=== PATIENT | male | born 1945 | race American Indian/Alaskan Native ===

== ENCOUNTER 2016-07-12 10:18 | Emergency (ER) | payer MEDICARE, OTHER ==
--- NOTE | 2016-07-12 10:55 | Emergency Department Report ---
Entered by ADARSH CARDONA, acting as scribe for YUMIKO TABOR PA. Stated Complaint: CHEST PAIN Time Seen by Provider: 07/12/16 10:26 - HPI History of Present Illness: Patient presents to the ED via EMS c/o chest pain that began this morning at 10: 15. Patient states he was at the dialysis center and began to feel chest pain. In triage, he currently denies having any chest pain and SOB. Pt has a fistula present on left arm. - ROS Review of Systems: All system are negative unless stated in HPI above. - Exam Vital Signs: Vital Signs 07/12/16 10:48 Temperature 97.5 F L Pulse Rate 60 Respiratory 18 Rate Blood Pressure 162/102 O2 Sat by Pulse 100 Oximetry Physical Exam: General: well nourished, well developed, nontoxic in appearance, in no acute distress Respiratory: clear to auscultation bilaterally. No wheezes. No rhonchi. No whales. Cardiovascular: S1/S2 regular rate and rhythm MSE screening note: Focused history and physical exam performed. Due to findings the following was ordered: ED Medical Decision Making - Medical Decision Making Medical decision making: Patient seen by provider in triage area. Appropriate protocol activated and patient to main ED to be seen by provider ED Disposition for MSE Condition: Stable This documentation as recorded by the scribe,ADARSH CARDONA,accurately reflects the service I personally performed and the decisions made by me,YUMIKO TABOR PA.
[2016-07-12 11:10] LABS: Basophils % (Auto) 1.1 % (0.0-1.8); Eosinophils % (Auto) 9.4 % (0.0-4.3); Hematocrit 36.8 % (35.5-45.6); Hemoglobin 12.1 gm/dl (11.8-15.2); Mean Corpuscular HGB Conc 33 % (32-34); Mean Corpuscular Hemoglobin 32 pg (28-32); Mean Corpuscular Volume 99 fl (84-94); Platelet Count 195 K/mm3 (140-440); Red Blood Count 3.72 M/mm3 (3.65-5.03); Red Cell Distribution Width 14.4 % (13.2-15.2); White Blood Count 8.8 K/mm3 (4.5-11.0)
[2016-07-12 11:18] LABS: INR 0.95 (0.87-1.13)
[2016-07-12 11:19] LABS: Partial Thromboplastin Time 36.7 Sec. (24.2-36.6)
--- NOTE | 2016-07-12 11:20 | XRay Report ---
ROUTINE CHEST, TWO VIEWS: HISTORY: chest pain. The trachea, heart, mediastinal contour, lung pratt and bony thorax are unremarkable. Right lower lobe opacity has resolved since 09/22/15. IMPRESSION: Unremarkable chest x-ray.
[2016-07-12 11:27] LABS: Creatine Kinase MB 2.4 ng/mL (0.0-4.0)
[2016-07-12 11:30] LABS: Creatine Kinase MB 2.4 ng/mL (0.0-4.0)
[2016-07-12 11:31] LABS: Anion Gap 20 mmol/L; BUN/Creatinine Ratio 3.12; Blood Urea Nitrogen 25 mg/dL (9-20); Calcium 9.3 mg/dL (8.4-10.2); Carbon Dioxide 29 mmol/L (22-30); Chloride 88.7 mmol/L (98-107); Creatine Kinase 128 units/L (55-170); Glucose 250 mg/dL (75-100); Potassium 3.6 mmol/L (3.6-5.0); Sodium 134 mmol/L (137-145)
--- NOTE | 2016-07-12 11:35 | Emergency Department Report ---
HPI - General Chief Complaint: Chest Pain Time Seen by Provider: 07/12/16 11:16 - HPI HPI: 70 year-old male who presents to the emergency department via EMS from dialysis with complaint of some pain to the upper abdomen and/or lower chest that began during dialysis. She did not finish dialysis as when he complained of this discomfort he was stopped on his dialysis and sent in for further evaluation. Patient currently says he is asymptomatic. He says it was a aching pain at about 5 out of 10 and it only lasted for about 20 or 30 minutes. He does not make any urine secondary to his hemodialysis. He denies any recent problems with bowel movements. He denies any nausea, back pain, fever, vomiting. He did not take anything and was not given anything for symptoms prior to presentation. The patient has a history of end-stage renal disease on hemodialysis on Tuesday/Tuesday/Tuesday, insulin-dependent diabetes, hypertension. His primary care doctor is Dr. Medina and his history card clerk is Dr. Rutherford. ED Past Medical Hx - Past Medical History Previous Medical History?: Yes Hx Hypertension: Yes Hx Heart Attack/AMI: No Hx Diabetes: Yes (IDDM) Hx GERD: Yes Hx Liver Disease: No Hx Renal Disease: Yes (dialysisi mwf) Hx Seizures: No Hx Asthma: No Hx COPD: No Hx Tuberculosis: No Hx HIV: No Additional medical history: high cholesterol - Surgical History Past Surgical History?: Yes Additional Surgical History: "back sugery". amputation of left big toe, left arm AV fistula - Social History Smoking Status: Former Smoker Substance Use Type: Prescribed - Medications Home Medications: Home Medications Medication Instructions Recorded Confirmed Last Taken Type Doxazosin Mesylate [Cardura Xl] 4 mg PO DAILY 07/12/16 07/12/16 Unknown History Ferric Citrate (Nf) [Auryxia (Nf)] 210 mg PO BID 07/12/16 07/12/16 Unknown History Gabapentin [Neurontin] 300 mg PO QHS 07/12/16 07/12/16 Unknown History Insulin Detemir [Levemir VIAL] 25 unit SQ QHS 07/12/16 07/12/16 Unknown History Losartan [Cozaar] 100 mg PO QDAY 07/12/16 07/12/16 Unknown History Metoprolol [Lopressor] 25 mg PO BID 07/12/16 07/12/16 Unknown History Simvastatin [Zocor TAB] 80 mg PO QHS 07/12/16 07/12/16 Unknown History amLODIPine [Norvasc] 10 mg PO DAILY 07/12/16 07/12/16 Unknown History ED Review of Systems ROS: Stated complaint: CHEST PAIN Other details as noted in HPI Comment: All other systems reviewed and negative Constitutional: denies: chills, fever Eyes: denies: eye pain, eye discharge, vision change ENT: denies: ear pain, throat pain Respiratory: denies: cough, shortness of breath, wheezing Cardiovascular: denies: palpitations, edema Gastrointestinal: abdominal pain. denies: nausea, vomiting Genitourinary: denies: urgency, dysuria Musculoskeletal: denies: back pain, joint swelling, arthralgia Skin: denies: rash, lesions Neurological: denies: headache, weakness, paresthesias Physical Exam - Physical Exam Vital Signs: Vital Signs 07/12/16 10:48 Temperature 97.5 F L Pulse Rate 60 Respiratory 18 Rate Blood Pressure 162/102 O2 Sat by Pulse 100 Oximetry Physical Exam: GENERAL: The patient is well-developed well-nourished. HEENT: Normocephalic. Atraumatic. Extraocular motions are intact. Patient has moist mucous membranes. Pupils equal reactive to light bilaterally. NECK: Supple. Trachea is midline. CHEST/LUNGS: Clear to auscultation. There is no respiratory distress noted. HEART/CARDIOVASCULAR: Regular. There is no tachycardia. There is no gallop rub or murmur. ABDOMEN: Abdomen is soft, nontender. Patient has normal bowel sounds. There is no abdominal distention. SKIN: Skin is warm and dry. NEURO: The patient is awake, alert, and oriented. The patient is cooperative. The patient has no focal neurologic deficits. The patient has normal speech. MUSCULOSKELETAL: There is no tenderness or deformity. There is no limitation range of motion. There is no evidence of acute injury. ED Course Vital Signs 07/12/16 10:48 Temperature 97.5 F L Pulse Rate 60 Respiratory 18 Rate Blood Pressure 162/102 O2 Sat by Pulse 100 Oximetry ED Medical Decision Making - Lab Data Result diagrams: 07/12/16 10:54 07/12/16 10:54 - EKG Data -: EKG Interpreted by Ar EKG shows normal: sinus rhythm (with PVCs and PACs), axis (left axis deviation) , intervals, QRS complexes, ST-T waves (nonspecific T waves) Rate: normal - EKG Data When compared to previous EKG there are: previous EKG unavailable Interpretation: other (sinus rhythm with PACs and PVCs, left axis deviation, nonspecific T waves) - Medical Decision Making This is a 70-year-old male who presents the emergency department from dialysis after he complained of some pain towards the epigastrium or lower midline chest. However the pain resolved prior to presentation and has not restarted. The patient says he is currently asymptomatic and is asking to be sent home. The patient had a chest pain workup through triage that was the concern of his complaint. EKG showed no signs of ST elevation LA. Chest x-ray does not show any pleural effusions, pneumonia or pneumothorax. Patient's labs are mostly unremarkable. He has renal insufficiency but he is end-stage renal disease on dialysis. He has an elevated troponin slightly but he also once again has end- stage renal disease and this is most likely secondary to that. The patient has been in the emergency department for almost 4 hours and has had no return of his previous discomfort. He did have some problems with hypertension with a systolic reaching into the 190s. The patient was given one shot of IM hydralazine and upon reevaluation his blood pressures come down to a much more reasonable level. He has been encouraged to follow up with his primary care doctor as well as his history card clerk and to contact nephrology to find out whether he should continue with his normal dialysis regimen on Tuesday or if he needs earlier dialysis tomorrow since he did not complete his session. Critical Care Time: No Critical care attestation.: If time is entered above; I have spent that time in minutes in the direct care of this critically ill patient, excluding procedure time. ED Disposition Clinical Impression: ESRD (end stage renal disease) HTN (hypertension) Qualifiers: Hypertension type: essential hypertension Qualified Code(s): I10 - Essential ( primary) hypertension Disposition: DISCHARGED TO HOME OR SELFCARE Is pt being admited?: No Condition: Stable Instructions: Hypertension (ED), Chronic Kidney Disease (ED) Additional Instructions: Please follow-up with your primary care doctor in the next few days. It is also recommended that you follow-up with your history card clerk to find out if they would like you to continue with her dialysis as scheduled on Tuesday or if you need dialysis tomorrow since she did not complete her dialysis session today. Return to the emergency department with any recurrence of your discomfort, whether it be abdominal or chest discomfort, or with any acute distress. Referrals: PRIMARY CARE, [Primary Care Provider] - 3-5 Days PAULINE BRUSH MD [Staff Physician] - [facility] Time of Disposition: 14:07
[2016-07-12 11:44] LABS: Cholesterol 249 mg/dL (50-199); HDL Cholesterol 61 mg/dL (40-59); LDL Cholesterol,Direct 171 mg/dL (50-130); Triglycerides 89 mg/dL (2-149)
[2016-07-12] MEDS ORDERED: APRESOLINE IM ONE (12:29)
[2016-07-12 14:12] VITALS: BP 165/89
== END 2016-07-12 14:53 | disposition home or self-care (01) ==
LOC: ED 10:18
DX: I12.0 Hypertensive chronic kidney disease with stage 5 chronic kidney disease or end stage renal disease (principal); N18.6 End stage renal disease; E11.9 Type 2 diabetes mellitus without complications; K21.9 Gastro-esophageal reflux disease without esophagitis; E78.00 Pure hypercholesterolemia, unspecified; Z99.2 Dependence on renal dialysis; Z87.891 Personal history of nicotine dependence; Z79.4 Long term (current) use of insulin
CPT/HCPCS: 36415; 71020; 80048; 80061; 82550; 82553; 83880; 84484; 85025; 85610; 85730; 93005; 93010; 96372; 99285; J0360

== ENCOUNTER 2018-05-27 15:50 | Emergency (ER) | payer MEDICARE, OTHER ==
[2018-05-27 17:07] LABS: Basophils # (Auto) 0.2 K/mm3 (0.0-0.1); Basophils % (Auto) 1.4 % (0.0-1.8); Eosinophils # (Auto) 0.8 K/mm3 (0.0-0.4); Hematocrit 40.3 % (35.5-45.6); Hemoglobin 13.1 gm/dl (11.8-15.2); Lymphocytes # (Auto) 1.5 K/mm3 (1.2-5.4); Lymphocytes % (Auto) 11.4 % (13.4-35.0); Mean Corpuscular HGB Conc 33 % (32-34); Mean Corpuscular Volume 105 fl (84-94); Monocytes # (Auto) 1.4 K/mm3 (0.0-0.8); Monocytes % (Auto) 10.5 % (0.0-7.3); Red Blood Count 3.84 M/mm3 (3.65-5.03); Red Cell Distribution Width 14.8 % (13.2-15.2)
[2018-05-27 17:10] LABS: Platelet Count 206 K/mm3 (140-440)
--- NOTE | 2018-05-27 17:18 | XRay Report ---
PROCEDURE: XR CHEST 1V AP TECHNIQUE: Chest single AP HISTORY: Fall COMPARISONS: FINDINGS: Cardiac and mediastinal contours are unremarkable. No focal pulmonary infiltrate identified. No pleur al fluid collection seen. Pulmonary vasculature is unremarkable. IMPRESSION: Negative single view chest. This document is electronically signed by Parviz Márquez MD., May 27 2018 05:16:14 PM ET
[2018-05-27 17:27] LABS: Albumin 4.2 g/dL (3.9-5); Calcium 10.6 mg/dL (8.4-10.2)
--- NOTE | 2018-05-27 19:50 | Emergency Department Report ---
HPI - General Chief Complaint: Fall Time Seen by Provider: 05/27/18 16:19 - HPI HPI: 72-year-old -[place] male with history of CK D, hypertension, presents to ED with frequent falls. Patient stated today he fell in his bathroom, didn't really hit the ground as he realizes he was falling and cannot sleep himself down. No chest pain or shortness of breath prior to the episode. He said he had back surgery years ago and have been progressively weakened since that surgery. He was once admitted for generalized weakness, and he has seen his PCP regarding this and getting rehabilitation once her rate. Family stated this once weekly rehabilitation is really not helping. ED Past Medical Hx - Past Medical History Hx Hypertension: Yes Hx Heart Attack/AMI: No Hx Diabetes: Yes (IDDM) Hx GERD: Yes Hx Liver Disease: No Hx Renal Disease: Yes (dialysisi mwf) Hx Seizures: No Hx Asthma: No Hx COPD: No Hx Tuberculosis: No Hx HIV: No Additional medical history: high cholesterol - Surgical History Additional Surgical History: "back sugery". amputation of left big toe, left arm AV fistula - Social History Smoking Status: Former Smoker Substance Use Type: None - Medications Home Medications: Home Medications Medication Instructions Recorded Confirmed Last Taken Type Doxazosin Mesylate [Cardura Xl] 4 mg PO DAILY 07/12/16 04/09/17 Unknown History Ferric Citrate (Nf) [Auryxia (Nf)] 210 mg PO BID 07/12/16 04/09/17 Unknown History Gabapentin [Neurontin] 300 mg PO QHS 07/12/16 04/09/17 Unknown History Insulin Detemir [Levemir VIAL] 25 unit SQ QHS 07/12/16 04/09/17 Unknown History Losartan [Cozaar] 100 mg PO QDAY 07/12/16 04/09/17 Unknown History Metoprolol [Lopressor TAB] 25 mg PO BID 07/12/16 04/09/17 Unknown History Simvastatin [Zocor TAB] 80 mg PO QHS 07/12/16 04/09/17 Unknown History amLODIPine [Norvasc] 10 mg PO DAILY 07/12/16 04/09/17 Unknown History cloNIDine [Catapres] 0.2 mg PO Q12H PRN #30 tablet 04/10/17 Unknown Rx ED Review of Systems ROS: Stated complaint: FALL Other details as noted in HPI Constitutional: denies: chills, fever Eyes: denies: eye pain, eye discharge, vision change ENT: denies: ear pain, throat pain Respiratory: denies: cough, shortness of breath, wheezing Cardiovascular: denies: chest pain, palpitations Endocrine: no symptoms reported Gastrointestinal: denies: abdominal pain, nausea, diarrhea Genitourinary: denies: urgency, dysuria Musculoskeletal: denies: back pain, joint swelling, arthralgia Skin: denies: rash, lesions Neurological: weakness. denies: headache, paresthesias Psychiatric: denies: anxiety, depression Hematological/Lymphatic: denies: easy bleeding, easy bruising Physical Exam - Physical Exam Vital Signs: Vital Signs 05/27/18 05/27/18 05/27/18 16:00 16:01 16:02 Temperature Pulse Rate Blood Pressure 138/81 138/81 O2 Sat by Pulse 93 92 94 Oximetry 05/27/18 05/27/18 05/27/18 16:04 16:06 16:07 Temperature 98.7 F Pulse Rate 85 Blood Pressure 138/81 138/81 O2 Sat by Pulse 94 95 Oximetry 05/27/18 05/27/18 05/27/18 16:38 16:40 16:42 Temperature Pulse Rate Blood Pressure 141/83 141/83 141/83 O2 Sat by Pulse 97 98 96 Oximetry 05/27/18 05/27/18 05/27/18 16:44 16:46 16:48 Temperature Pulse Rate Blood Pressure 141/83 141/83 141/83 O2 Sat by Pulse 94 94 97 Oximetry 05/27/18 05/27/18 05/27/18 16:50 16:52 16:54 Temperature Pulse Rate Blood Pressure 141/83 141/83 141/83 O2 Sat by Pulse 95 94 97 Oximetry 05/27/18 05/27/18 05/27/18 16:56 16:58 17:00 Temperature Pulse Rate Blood Pressure 141/83 141/83 146/77 O2 Sat by Pulse 95 95 96 Oximetry 05/27/18 05/27/18 05/27/18 17:02 17:04 17:06 Temperature Pulse Rate Blood Pressure 146/77 146/77 146/77 O2 Sat by Pulse 94 96 97 Oximetry 05/27/18 05/27/18 05/27/18 17:08 17:10 17:12 Temperature Pulse Rate Blood Pressure 146/77 146/77 146/77 O2 Sat by Pulse 99 98 98 Oximetry 05/27/18 05/27/18 05/27/18 17:14 17:16 17:18 Temperature Pulse Rate Blood Pressure 146/77 146/77 146/77 O2 Sat by Pulse 94 92 92 Oximetry 05/27/18 05/27/18 05/27/18 17:20 17:22 17:24 Temperature Pulse Rate Blood Pressure 146/77 146/77 146/77 O2 Sat by Pulse 100 92 100 Oximetry 05/27/18 05/27/18 05/27/18 17:26 17:28 17:30 Temperature Pulse Rate Blood Pressure 146/77 146/77 146/77 O2 Sat by Pulse 94 99 98 Oximetry 05/27/18 05/27/18 05/27/18 17:32 17:34 17:36 Temperature Pulse Rate Blood Pressure 146/77 146/77 146/77 O2 Sat by Pulse 98 98 97 Oximetry 05/27/18 05/27/18 05/27/18 17:38 17:40 17:42 Temperature Pulse Rate Blood Pressure 146/77 146/77 146/77 O2 Sat by Pulse 99 97 98 Oximetry 05/27/18 05/27/18 05/27/18 17:44 17:46 17:48 Temperature Pulse Rate Blood Pressure 146/77 146/77 146/77 O2 Sat by Pulse 95 98 98 Oximetry 05/27/18 05/27/18 05/27/18 17:50 17:52 17:54 Temperature Pulse Rate Blood Pressure 146/77 146/77 146/77 O2 Sat by Pulse 99 97 96 Oximetry 05/27/18 05/27/18 05/27/18 17:56 17:58 18:00 Temperature Pulse Rate Blood Pressure 146/77 146/77 146/77 O2 Sat by Pulse 98 97 95 Oximetry 05/27/18 05/27/18 05/27/18 18:02 18:04 18:06 Temperature Pulse Rate Blood Pressure 146/77 146/77 146/77 O2 Sat by Pulse 96 97 96 Oximetry 05/27/18 05/27/18 05/27/18 18:08 18:10 18:12 Temperature Pulse Rate Blood Pressure 146/77 146/77 146/77 O2 Sat by Pulse 96 96 94 Oximetry 05/27/18 05/27/18 18:14 18:16 Temperature Pulse Rate Blood Pressure 146/77 146/77 O2 Sat by Pulse 97 96 Oximetry Physical Exam: Gen. alert and oriented 3 in no distress Head atraumatic normocephalic Eyes PERRLA EOMI Chest regular rate and rhythm normal S1-S2 lungs clear bilaterally Abdomen soft nondistended Back no point tenderness paravertebral tenderness Neuro no focal deficit. Psych normal mood. ED Course Vital Signs 05/27/18 05/27/18 05/27/18 16:00 16:01 16:02 Temperature Pulse Rate Blood Pressure 138/81 138/81 O2 Sat by Pulse 93 92 94 Oximetry 05/27/18 05/27/18 05/27/18 16:04 16:06 16:07 Temperature 98.7 F Pulse Rate 85 Blood Pressure 138/81 138/81 O2 Sat by Pulse 94 95 Oximetry 05/27/18 05/27/18 05/27/18 16:38 16:40 16:42 Temperature Pulse Rate Blood Pressure 141/83 141/83 141/83 O2 Sat by Pulse 97 98 96 Oximetry 05/27/18 05/27/18 05/27/18 16:44 16:46 16:48 Temperature Pulse Rate Blood Pressure 141/83 141/83 141/83 O2 Sat by Pulse 94 94 97 Oximetry 05/27/18 05/27/18 05/27/18 16:50 16:52 16:54 Temperature Pulse Rate Blood Pressure 141/83 141/83 141/83 O2 Sat by Pulse 95 94 97 Oximetry 05/27/18 05/27/18 05/27/18 16:56 16:58 17:00 Temperature Pulse Rate Blood Pressure 141/83 141/83 146/77 O2 Sat by Pulse 95 95 96 Oximetry 05/27/18 05/27/18 05/27/18 17:02 17:04 17:06 Temperature Pulse Rate Blood Pressure 146/77 146/77 146/77 O2 Sat by Pulse 94 96 97 Oximetry 05/27/18 05/27/18 05/27/18 17:08 17:10 17:12 Temperature Pulse Rate Blood Pressure 146/77 146/77 146/77 O2 Sat by Pulse 99 98 98 Oximetry 05/27/18 05/27/18 05/27/18 17:14 17:16 17:18 Temperature Pulse Rate Blood Pressure 146/77 146/77 146/77 O2 Sat by Pulse 94 92 92 Oximetry 05/27/18 05/27/18 05/27/18 17:20 17:22 17:24 Temperature Pulse Rate Blood Pressure 146/77 146/77 146/77 O2 Sat by Pulse 100 92 100 Oximetry 05/27/18 05/27/18 05/27/18 17:26 17:28 17:30 Temperature Pulse Rate Blood Pressure 146/77 146/77 146/77 O2 Sat by Pulse 94 99 98 Oximetry 05/27/18 05/27/18 05/27/18 17:32 17:34 17:36 Temperature Pulse Rate Blood Pressure 146/77 146/77 146/77 O2 Sat by Pulse 98 98 97 Oximetry 05/27/18 05/27/18 05/27/18 17:38 17:40 17:42 Temperature Pulse Rate Blood Pressure 146/77 146/77 146/77 O2 Sat by Pulse 99 97 98 Oximetry 05/27/18 05/27/18 05/27/18 17:44 17:46 17:48 Temperature Pulse Rate Blood Pressure 146/77 146/77 146/77 O2 Sat by Pulse 95 98 98 Oximetry 05/27/18 05/27/18 05/27/18 17:50 17:52 17:54 Temperature Pulse Rate Blood Pressure 146/77 146/77 146/77 O2 Sat by Pulse 99 97 96 Oximetry 05/27/18 05/27/18 05/27/18 17:56 17:58 18:00 Temperature Pulse Rate Blood Pressure 146/77 146/77 146/77 O2 Sat by Pulse 98 97 95 Oximetry 05/27/18 05/27/18 05/27/18 18:02 18:04 18:06 Temperature Pulse Rate Blood Pressure 146/77 146/77 146/77 O2 Sat by Pulse 96 97 96 Oximetry 05/27/18 05/27/18 05/27/18 18:08 18:10 18:12 Temperature Pulse Rate Blood Pressure 146/77 146/77 146/77 O2 Sat by Pulse 96 96 94 Oximetry 05/27/18 05/27/18 18:14 18:16 Temperature Pulse Rate Blood Pressure 146/77 146/77 O2 Sat by Pulse 97 96 Oximetry ED Medical Decision Making - Lab Data Result diagrams: 05/27/18 16:53 05/27/18 16:53 Critical care attestation.: If time is entered above; I have spent that time in minutes in the direct care of this critically ill patient, excluding procedure time. ED Disposition Clinical Impression: Weakness Disposition: DC-01 TO HOME OR SELFCARE Is pt being admited?: No Does the pt Need Aspirin: No Condition: Stable Instructions: Weakness (ED) Referrals: BRAD BERRY MD [Primary Care Provider] - 3-5 Days
[2018-05-27 22:10] VITALS: BP 177/88
== END 2018-05-27 22:00 | disposition home or self-care (01) ==
LOC: ED 15:50
DX: R53.1 Weakness (principal); I10 Essential (primary) hypertension; E11.9 Type 2 diabetes mellitus without complications; K21.9 Gastro-esophageal reflux disease without esophagitis; E78.00 Pure hypercholesterolemia, unspecified; Z87.891 Personal history of nicotine dependence; Z79.899 Other long term (current) drug therapy; Z99.2 Dependence on renal dialysis
CPT/HCPCS: 36415; 71045; 80053; 85025; 93005; 93010

== ENCOUNTER 2018-05-29 14:06 | Inpatient (IN) | payer MEDICARE, OTHER ==
[2018-05-29 16:04] LABS: Hemoglobin 12.1 gm/dl (11.8-15.2); Mean Corpuscular HGB Conc 33 % (32-34); Mean Corpuscular Volume 104 fl (84-94); Platelet Count 216 K/mm3 (140-440); Red Blood Count 3.55 M/mm3 (3.65-5.03); Red Cell Distribution Width 14.2 % (13.2-15.2)
[2018-05-29 16:23] LABS: INR 1.03 (0.87-1.13)
[2018-05-29 16:24] LABS: Albumin 3.8 g/dL (3.9-5); BUN/Creatinine Ratio 5; Blood Urea Nitrogen 69 mg/dL (9-20); Calcium 9.6 mg/dL (8.4-10.2); Hemolysis Index 169; Partial Thromboplastin Time 29.1 Sec. (24.2-36.6)
[2018-05-29 16:30] LABS: Bilirubin,Direct < 0.2 mg/dL (0-0.2)
--- NOTE | 2018-05-29 16:30 | XRay Report ---
PROCEDURE: XR CHEST 1V AP TECHNIQUE: Frontal portable view of the chest HISTORY: ams COMPARISONS: Chest x-ray dated May 27, 2018 FINDINGS: There is bilateral hypoinflation with crowding of the bronchovascular structures. There is prominence of the interstitial markings in both lungs that appears to have increased in degr ee in the interval. This may be secondary to hypoinflation. There is a nonspecific focus of increased density projected in the left lung base in the region of th e left ventricle. Whether or not this is artifactual or in nature or possibly represent a retrocardia c area of pulmonary consolidation is unclear. There is no evidence of pneumothorax or pleural fluid collection. There is prominence of the pulmonary venous vasculature suggestive of pulmonary venous congestion. The cardiac silhouette is enlarged similar in appearance to the previous study. The thoracic aorta is tortuous. The bony structures are notable for retained hardware in the cervical spine. Visualization of detail of the thoracic spine is limited. IMPRESSION: 1. Hypoinflation. 2. Nonspecific focus of increased density projected in the left lung base. Artifact versus retrocardi ac pulmonary consolidation. PA and lateral views of the chest or CT chest may be helpful for further evaluation. 3. Stable enlarged cardiac silhouette. 4. Retained hardware cervical spine. This document is electronically signed by Drea Summers MD., May 29 2018 04:27:58 PM ET
[2018-05-29 16:31] LABS: Alanine Aminotransferase 10 units/L (7-56)
[2018-05-29] MEDS ORDERED: LEVAQUIN 750MG/150ML 750 MG/150 ML BAG IV ONE (16:35)
--- NOTE | 2018-05-29 16:47 | Emergency Department Report ---
- General Chief complaint: Weakness Stated complaint: FALL/WEAKNESS Time Seen by Provider: 05/29/18 14:39 Source: patient Mode of arrival: Stretcher Limitations: No Limitations - History of Present Illness Initial comments: 72-year-old male with history of ESRD presents to ED today with generalized weakness. states she was trying to get him dressed this morning for dialysis, and patient rolled off of the bed because he was so weak. states she had to call 911 so that they could help get the patient off of the floor. The states patient was asleep on the floor until EMS arrived. States he has been sleepier than usual. Patient reports he has been getting progressively weaker over the last few months. Says he is normally able to use his walker to walk, however, he felt so weak that he could not do so. also reports patient was briefly unresponsive. Patient's again called EMS to bring him to the ED. Patient denies pain, denies shortness of breath. Patient denies right or left-sided weakness, reports generalized weakness. States was seen 2 days ago in this ER for generalized weakness, was discharged from the ER. Patient reports he was last dialyzed 3 days ago, and 2 for dialysis today. Clinical Trial Leader is Dr. Frank. Complaint: generalized weakness -: This morning Location: generalized Severity: severe Severity scale (0 -10): 0 Consistency: constant Improves with: none Worsens with: none Context: history of similar Associated Symptoms: confusion. denies: chest pain, fever/chills, headaches, nausea/vomiting, shortness of breath - Related Data Home Medications Medication Instructions Recorded Confirmed Last Taken Doxazosin Mesylate [Cardura Xl] 4 mg PO BID 07/12/16 04/09/17 05/29/18 Ferric Citrate (Nf) [Auryxia (Nf)] 210 mg PO BID 07/12/16 04/09/17 Unknown Gabapentin [Neurontin] 300 mg PO QHS 07/12/16 05/29/18 05/28/18 300 Insulin Detemir [Levemir VIAL] 20 unit SQ QHS 07/12/16 05/29/18 05/28/18 20 Losartan [Cozaar] 100 mg PO QDAY 07/12/16 05/29/18 05/29/18 100 Metoprolol [Lopressor TAB] 25 mg PO BID 07/12/16 04/09/17 Unknown Simvastatin [Zocor TAB] 80 mg PO QHS 07/12/16 04/09/17 Unknown amLODIPine [Norvasc] 10 mg PO DAILY 07/12/16 04/09/17 05/29/18 10 cloNIDine [Catapres] 0.2 mg PO DAILY PRN 05/29/18 05/29/18 0.2 Allergies Allergy/AdvReac Type Severity Reaction Status Date / Time No Known Allergies Allergy Verified 02/21/14 22:42 ED Review of Systems ROS: Stated complaint: FALL/WEAKNESS Other details as noted in HPI Comment: All other systems reviewed and negative Constitutional: denies: chills, fever Respiratory: denies: shortness of breath Cardiovascular: denies: chest pain Gastrointestinal: denies: abdominal pain, vomiting, diarrhea Neurological: denies: headache ED Past Medical Hx - Past Medical History Hx Hypertension: Yes Hx Heart Attack/AMI: No Hx Diabetes: Yes (IDDM) Hx GERD: Yes Hx Liver Disease: No Hx Renal Disease: Yes (dialysisi mwf) Hx Seizures: No Hx Asthma: No Hx COPD: No Hx Tuberculosis: No Hx HIV: No Additional medical history: high cholesterol - Surgical History Additional Surgical History: "back sugery". amputation of left big toe, left arm AV fistula - Social History Smoking Status: Never Smoker Substance Use Type: None - Medications Home Medications: Home Medications Medication Instructions Recorded Confirmed Last Taken Type Doxazosin Mesylate [Cardura Xl] 4 mg PO BID 07/12/16 04/09/17 05/29/18 History Ferric Citrate (Nf) [Auryxia (Nf)] 210 mg PO BID 07/12/16 04/09/17 Unknown History Gabapentin [Neurontin] 300 mg PO QHS 07/12/16 05/29/18 05/28/18 History 300 Insulin Detemir [Levemir VIAL] 20 unit SQ QHS 07/12/16 05/29/18 05/28/18 History 20 Losartan [Cozaar] 100 mg PO QDAY 07/12/16 05/29/18 05/29/18 History 100 Metoprolol [Lopressor TAB] 25 mg PO BID 07/12/16 04/09/17 Unknown History Simvastatin [Zocor TAB] 80 mg PO QHS 04/24/17 01/20/18 Unknown History amLODIPine [Norvasc] 10 mg PO DAILY 07/12/16 04/09/17 05/29/18 History 10 cloNIDine [Catapres] 0.2 mg PO DAILY PRN 05/29/18 05/29/18 History 0.2 ED Physical Exam - General Limitations: No Limitations General appearance: lethargic - Head Head exam: Present: atraumatic, normocephalic - Eye Eye exam: Present: normal appearance - ENT ENT exam: Present: mucous membranes dry - Neck Neck exam: Present: normal inspection - Respiratory Respiratory exam: Present: normal lung sounds bilaterally. Absent: respiratory distress - Cardiovascular Cardiovascular Exam: Present: regular rate, normal rhythm - GI/Abdominal GI/Abdominal exam: Present: soft. Absent: distended, tenderness - Extremities Exam Extremities exam: Present: normal inspection - Neurological Exam Neurological exam: Present: oriented X3, CN II-XII intact - Psychiatric Psychiatric exam: Present: normal affect, normal mood - Skin Skin exam: Present: warm, dry, intact, normal color - Assessment Assessment Interval: Baseline - Level of Consciousness 1a. Level of Consciousness: arousable/minor stimuli - LOC Questions 1b. LOC Questions: answers both correctly - LOC Command 1c. LOC Commands: performs tasks correctly - Best Gaze 2. Best Gaze: normal - Visual 3. Visual: no visual loss - Facial Palsy 4. Facial Palsy: normal symmetrical movement - Motor Arm 5a. Motor Arm Left: drift 5b. Motor Arm Right: drift - Motor Leg 6a. Motor Leg Left: drift 6b. Motor Leg Right: drift - Limb Ataxia 7. Limb Ataxia: absent - Sensory 8. Sensory: normal - Best Language 9. Best Language: no aphasia - Dysarthria 10. Dysarthria: normal - Extinction and Inattention 11. Extinction/Inattention: no abnormality - Scoring Total Score: 5 Stroke Severity: Moderate Stroke ED Course Vital Signs 05/29/18 05/29/18 05/29/18 14:20 15:25 15:30 Temperature 99.4 F Pulse Rate 103 H 97 H 100 H Respiratory 16 13 18 Rate Blood Pressure 159/81 159/84 159/84 Blood Pressure [Right] O2 Sat by Pulse 90 100 93 Oximetry 05/29/18 05/29/18 05/29/18 15:34 15:46 16:00 Temperature Pulse Rate 97 H 94 H Respiratory 16 12 15 Rate Blood Pressure 160/88 160/88 Blood Pressure [Right] O2 Sat by Pulse 90 89 99 Oximetry 05/29/18 05/29/18 05/29/18 16:09 16:16 16:30 Temperature Pulse Rate 98 H 95 H 98 H Respiratory 14 12 15 Rate Blood Pressure 183/97 172/94 Blood Pressure 183/97 [Right] O2 Sat by Pulse 98 95 97 Oximetry 05/29/18 05/29/18 05/29/18 16:46 17:00 17:16 Temperature Pulse Rate 91 H 91 H 95 H Respiratory 13 18 19 Rate Blood Pressure 168/90 168/90 179/90 Blood Pressure [Right] O2 Sat by Pulse 99 98 98 Oximetry 05/29/18 05/29/18 05/29/18 17:30 17:58 18:00 Temperature Pulse Rate 91 H 90 88 Respiratory 17 13 14 Rate Blood Pressure 170/89 170/89 170/89 Blood Pressure [Right] O2 Sat by Pulse 99 90 92 Oximetry 05/29/18 05/29/18 05/29/18 18:16 18:30 18:45 Temperature Pulse Rate 91 H 85 87 Respiratory 15 15 13 Rate Blood Pressure 149/71 156/108 160/85 Blood Pressure [Right] O2 Sat by Pulse 97 97 93 Oximetry 05/29/18 05/29/18 05/29/18 19:00 19:04 19:16 Temperature 98.5 F Pulse Rate 94 H 90 85 Respiratory 15 12 14 Rate Blood Pressure 160/85 148/80 Blood Pressure 148/80 [Right] O2 Sat by Pulse 99 96 99 Oximetry 05/29/18 05/29/18 05/29/18 19:31 19:45 20:01 Temperature Pulse Rate 89 87 90 Respiratory 13 13 14 Rate Blood Pressure 150/86 149/82 157/88 Blood Pressure [Right] O2 Sat by Pulse 96 99 95 Oximetry 05/29/18 05/29/18 20:15 20:31 Temperature Pulse Rate 83 85 Respiratory 14 13 Rate Blood Pressure 157/88 157/88 Blood Pressure [Right] O2 Sat by Pulse 92 80 L Oximetry - Reevaluation(s) Reevaluation #1: 05/29/18 17:39 ABG results: ph 7.40, CO2 46, pO2 62, O2 sats 91% RA... results not crossing over into [facility] ED Medical Decision Making - Lab Data Result diagrams: 05/30/18 06:50 05/30/18 12:16 - EKG Data -: EKG Interpreted by Me EKG shows normal: sinus rhythm, axis, intervals, QRS complexes Rate: normal - EKG Data When compared to previous EKG there are: no significant change (compared to 04/11/17) Interpretation: other (T wave inversions I and aVL) - Radiology Data Radiology results: report reviewed, image reviewed - Medical Decision Making 71-year-old male with generalized weakness. Patient has elevated WBC count at 28, found to have pneumonia on chest x-ray. Lactic acid normal. Vital signs stable, O2 sats 91%. Patient placed on 2 L O2. Patient is anuric due to his ESRD, so unable to obtain urine. Blood cultures drawn, first dose of Levaquin given. CT head negative for any acute changes. Patient did miss dialysis today, however potassium is normal. Will admit to hospitalist Dr. Mckeon, for further workup. - Differential Diagnosis electrolyte abnormality, infection, dehydration Critical care attestation.: If time is entered above; I have spent that time in minutes in the direct care of this critically ill patient, excluding procedure time. ED Disposition Clinical Impression: Generalized weakness, Altered mental status Pneumonia Qualifiers: Laterality: bilateral Disposition: -09 OP ADMIT IP TO THIS HOSP Is pt being admited?: Yes Condition: Stable Time of Disposition: 19:05
[2018-05-29 16:53] LABS: Band Neutrophils # (Manual) 1.1 K/mm3; Basophils % (Manual) 0.5 % (0.0-1.8); Chol/HDL Ratio 3.14 %; Eosinophils % (Manual) 0.5 % (0.0-4.3); Monocytes % (Manual) 5.5 % (0.0-7.3); Total Cells Counted 200
[2018-05-29 16:54] LABS: Anisocytosis 1+
[2018-05-29 16:55] LABS: Macrocytosis 1+; Poikilocytosis 1+
[2018-05-29 16:56] LABS: Giant Platelets Few; Ovalocytes Few; Platelet Estimate Consistent w Auto; Target Cells Few
--- NOTE | 2018-05-29 18:49 | Cat Scan Report ---
PROCEDURE: CT HEAD/BRAIN WO CON TECHNIQUE: Axial helical imaging from the skull base to the vertex. HISTORY: ams COMPARISONS: None FINDINGS: There is no evidence of an acute intracranial process, intracranial hemorrhage or mass effect. Ventricular size is concordant with the degree of atrophy. There is atherosclerotic vascular calcification of the internal carotid arteries bilaterally and righ t vertebral artery at the skull base. The visualized portions of the orbits, paranasal and mastoid sinuses are notable for mild bilateral e thmoid and maxillary sinus mucosal thickening. There appears to be bilateral proptosis. The orbital contents are otherwise unremarkable. IMPRESSION: 1. No evidence of an acute intracranial process, intracranial hemorrhage or mass effect. If there is a clinical suspicion of an acute intracranial process, MRI brain may be helpful. 2. Atherosclerotic vascular calcification. 3. Appearance of bilateral proptosis. This document is electronically signed by Drea Summers MD., May 29 2018 06:47:22 PM ET
--- NOTE | 2018-05-29 19:28 | History and Physical Report ---
History of Present Illness Chief complaint: Im just not feeling good at all History of present illness: 72 YO Male with HTN, Obesity, ESRD on HD (M,W,F), DM, GERD, Metabolic Syndrome, HLD presents to ED for evaluation. Pt states that he has experienced weakness for the past 1 week with worsening symptoms over the past 4 days. Pt acknowledges inability to independently conduct activities of daily living and requires 4-6/6 Assistance on a daily baisis. EMS notified, and upon arrival the patient was found to be in distress and unable to get up from the floor. Pt transported to [facility]. Pt seen and evaluated in ED and found to have Bilateral Pneumonia, SIRS, and ESRD. Pt denies fever, chills, CP, Palpitations, NVD, S yncope, BRBPR, Recent ill contacts, productive cough, trauma. Pt admitted to Telemetry. Nephrology consulted in ED for urgent dialysis. Past History Past Surgical History: Other (Toe Surgery, AV Fistula) Social history: , lives with family. denies: smoking, alcohol abuse, prescription drug abuse Family history: diabetes, hypertension Medications and Allergies Allergies Allergy/AdvReac Type Severity Reaction Status Date / Time No Known Allergies Allergy Verified 02/21/14 22:42 Home Medications Medication Instructions Recorded Confirmed Last Taken Type Doxazosin Mesylate [Cardura Xl] 4 mg PO BID 07/12/16 04/09/17 05/29/18 History Ferric Citrate (Nf) [Auryxia (Nf)] 210 mg PO BID 07/12/16 04/09/17 Unknown History Gabapentin [Neurontin] 300 mg PO QHS 07/12/16 05/29/18 05/28/18 History 300 Insulin Detemir [Levemir VIAL] 20 unit SQ QHS 07/12/16 05/29/18 05/28/18 History 20 Losartan [Cozaar] 100 mg PO QDAY 07/12/16 05/29/18 05/29/18 History 100 Metoprolol [Lopressor TAB] 25 mg PO BID 07/12/16 04/09/17 Unknown History Simvastatin [Zocor TAB] 80 mg PO QHS 07/12/16 04/09/17 Unknown History amLODIPine [Norvasc] 10 mg PO DAILY 07/12/16 04/09/17 05/29/18 History 10 cloNIDine [Catapres] 0.2 mg PO DAILY PRN 05/29/18 05/29/18 History 0.2 Review of Systems Constitutional: weakness, no weight loss, no weight gain, no fever, no chills Ears, nose, mouth and throat: no ear pain, no ear discharge, no tinnitis, no decreased hearing, no nose pain, no nasal congestion Cardiovascular: no chest pain, no orthopnea, no palpitations, no rapid/irregular heart beat, no edema Respiratory: no cough, no cough with sputum, no excessive sputum, no hemoptysis Gastrointestinal: no nausea, no vomiting, no diarrhea, no constipation, no change in bowel habits Genitourinary Male: no hematuria, no flank pain, no urinary frequency, no urinary hesitancy, no nocturia Rectal: no pain, no incontinence, no bleeding Musculoskeletal: no neck stiffness, no neck pain, no shooting arm pain, no arm numbness/tingling Integumentary: no rash, no pruritis, no redness, no sores, no wounds Neurological: no transient paralysis, no paralysis, no weakness, no parathesias, no numbness, no tingling Psychiatric: no anxiety, no memory loss, no change in sleep habits, no sleep disturbances, no insomnia, no hypersomnia, no change in appetite Endocrine: no cold intolerance, no heat intolerance, no polyphagia, no excessive thirst, no polydipsia, no polyuria, no excessive sweating Hematologic/Lymphatic: no easy bruising, no easy bleeding, no lymphadenopathy, no lymphedema Allergic/Immunologic: no urticaria, no wheezing, no persistent infections, no angioedema Exam - Constitutional Vitals: Temp Pulse Resp BP Pulse Ox 98.5 F 90 12 148/80 96 05/29/18 19:04 05/29/18 19:04 05/29/18 19:04 05/29/18 19:04 05/29/18 19:04 General appearance: Present: mild distress, obese - EENT Eyes: Present: PERRL ENT: hearing intact, clear oral mucosa - Neck Neck: Present: supple, normal ROM - Respiratory Respiratory effort: normal Respiratory: bilateral: diminished, rhonchi - Cardiovascular Heart Sounds: Present: S1 & S2. Absent: rub, click - Extremities Extremity abnormal: edema Peripheral Pulses: within normal limits - Abdominal General gastrointestinal: Present: soft, non-tender, non-distended, normal bowel sounds Male genitourinary: Present: normal - Integumentary Integumentary: Present: clear, warm, dry - Musculoskeletal Musculoskeletal: generalized weakness - Psychiatric Psychiatric: appropriate mood/affect, intact judgment & insight - Neurologic Neurologic: CNII-XII intact, moves all extremities, no gait normal Results - Labs CBC & Chem 7: 05/30/18 06:50 05/30/18 06:50 Labs: Abnormal lab results 05/29/18 05/29/18 05/29/18 Range/Units 15:49 15:49 15:49 WBC 28.1 H (4.5-11.0) K/mm3 RBC 3.55 L (3.65-5.03) M/mm3 MCV 104 H (84-94) fl MCH 34 H (28-32) pg Seg Neuts % (Manual) 82.0 H (40.0-70.0) % Lymphocytes % (Manual) 6.5 L (13.4-35.0) % Seg Neutrophils # Man 23.0 H (1.8-7.7) K/mm3 Monocytes # (Manual) 1.5 H (0.0-0.8) K/mm3 BUN 69 H (9-20) mg/dL Creatinine 13.7 H D (0.8-1.5) mg/dL Glucose 101 H (75-100) mg/dL Troponin T 0.115 H* (0.00-0.029) ng/mL Albumin 3.8 L (3.9-5) g/dL Assessment and Plan - Patient Problems (1) ESRD (end stage renal disease) Current Visit: Yes Status: Acute Plan to address problem: Nephrology consulted for dialysis, Avoid nephrotoxic agents, strict I/O, daily weight, monitor uop q shift, (2) Pneumonia Current Visit: Yes Status: Acute Qualifiers: Laterality: bilateral Plan to address problem: Pneumonia protocol: IV antibiotic therapy, supplemental oxygen, nebulizer therapy, chest x ray, pulse oximetry, blood cultures, pulmonary toilet, early ambulation, (3) Acute respiratory failure Current Visit: No Status: Acute Qualifiers: Respiratory failure complication: hypoxia Qualified Code(s): J96.01 - Acute respiratory failure with hypoxia Plan to address problem: Supplemental oxygen, nebulizer therapy, chext x ray, NIPPV as clinically indicated, pulse oximetry, treat pneumonia. (4) CHF (congestive heart failure) Current Visit: No Status: Suspected Qualifiers: Heart failure type: combined systolic and diastolic Plan to address problem: Admit to telemetry, Strict I/O, monitor uop q shift, dailly weight, diuresis as tolerated, cardiology consulted, previous echo reviewed, afterload reduction, blood pressure control, supplemental oxygen, pulse oximetry, chest x ray, bnp (5) HTN (hypertension) Current Visit: Yes Status: Acute Qualifiers: Hypertension type: essential hypertension Qualified Code(s): I10 - Essential (primary) hypertension Plan to address problem: Monitor BP q shift, (6) Diabetes Current Visit: Yes Status: Acute Plan to address problem: ADA diet, insulin, accu check (7) GERD (gastroesophageal reflux disease) Current Visit: Yes Status: Acute Qualifiers: Esophagitis presence: without esophagitis Qualified Code(s): K21.9 - Gastro-esophageal reflux disease without esophagitis Plan to address problem: PPI therapy (8) Metabolic syndrome Current Visit: Yes Status: Acute Plan to address problem: Balanced diet, increased physical activity at [employer] [facility], (9) DVT prophylaxis Current Visit: No Status: Acute Plan to address problem: SCD to BLE while in bed.
[2018-05-29] MEDS ORDERED: TYLENOL PO PRN (19:33)
[2018-05-29] MEDS ORDERED: ZOFRAN IV PRN (19:33)
[2018-05-29] MEDS ORDERED: SODIUM CHLORIDE FLUSH SYRINGE 10 ML IV PRN (19:33)
[2018-05-29] MEDS ORDERED: PROVENTIL IH PRN (19:33)
[2018-05-29] MEDS: ROCEPHIN/NS 2 GM/100 ML 2 GM/100 ML BAG IV SCH (22:00)
[2018-05-29] MEDS: SODIUM CHLORIDE FLUSH SYRINGE 10 ML IV SCH (23:09)
[2018-05-29] MEDS: PEPCID PO SCH (23:09)
[2018-05-29] MEDS: ZITHROMAX 500 MG in NACL 0.9% 250ML 250 ML IV SCH (23:10)
[2018-05-30] MEDS ORDERED: APRESOLINE IV PRN ×2 (00:43→16:52)
[2018-05-30 07:10] LABS: Hemoglobin 11.4 gm/dl (11.8-15.2); Mean Corpuscular HGB Conc 33 % (32-34); Mean Corpuscular Volume 104 fl (84-94); Platelet Count 220 K/mm3 (140-440); Red Blood Count 3.36 M/mm3 (3.65-5.03); Red Cell Distribution Width 14.4 % (13.2-15.2)
[2018-05-30 07:31] LABS: Calcium 9.5 mg/dL (8.4-10.2)
[2018-05-30 08:38] LABS: Basophils % (Manual) 0 % (0.0-1.8); Total Cells Counted 100
[2018-05-30 08:39] LABS: Anisocytosis 1+; Macrocytosis Few; Poikilocytosis 1+; Target Cells Rare
[2018-05-30 08:40] LABS: Giant Platelets Rare; Platelet Estimate Consistent w Auto
[2018-05-30] MEDS ORDERED: NACL 0.9% 100 ML IV PRN (09:54)
--- NOTE | 2018-05-30 09:56 | Consultation ---
History of Present Illness - History of Present Illness Thank you for the consultation ! Patient was evaluated today My assessment and plan are as follows; End-stage renal disease: Patient will continue with hemodialysis, monitor dialys is related labs, patient will need to be dialyzed today due to hyperkalemia potassium of 6.1 in the meantime given calcium insulin D50 Noted with fever high white cell count and generalized weakness, in the outpatient setting patient has been complaining of generalized weakness fatigue and over time has been having difficulty taking care of himself Anemia in end-stage renal disease: Monitor hemoglobin and hematocrit, erythropoietin as needed Fever high white cell count, rule out sepsis, needs empiric antibiotic as well as blood culture Hyperkalemia would like to discontinue losartan altogether for now and follow Secondary hyperparathyroidism periodically check phosphorus and PTH level Hypertension and volume: , Adjust medications as needed, ultrafiltration as tolerated keep systolic blood pressure above 100 Left lung infiltrate, crackles likely patient does have pneumonia Malnutrition risk: High please consider high protein diet as well as nutrition follow-up, patient needs at least 1.5 g protein per KG body weight Patient is high risk in terms of fall he's not been able take care of himself I think he will need to go to a rehabilitation, I had discussed this with patient's in the outpatient setting as well Patient was adequately counseled and educated regarding multiple renal related issues. Renal prognosis remains guarded at this time All renal related questions were answered and simple Thai pertinent lab studies as well as imaging results were also discussed with patient We will continue to follow and make recommendations from renal standpoint. Thank you for the consultation Author: Gopi Frank M.D. [facility], [address] [place] [address] Tel; [phone] Source of information: From patient , partly, dialysis record, current chart History of present illness Patient is a 42-year-old -[place] male who is currently dialysis dependent Tuesday at [facility] dialysis facility patient has been admitted here with leukocytosis left lung infiltrate and was also noted to be hyperkalemic consultation was placed for management of end-stage renal disease. Patient recently has been getting more and more deconditioned and weak and had a recent discussion with patient's from the dialysis facility, it is becoming difficult for the to also take care of the patient patient in general has not been very compliant lately Past medical history significant for End-stage renal disease Anemia and end-stage renal disease Secondary hyperparathyroidism Hypertension Noncompliance fluid abuse Diabetes mellitus type 2 Current allergies: None Home medication present medication: Reviewed Social history family history: Reviewed Review of systems generalized weakness fatigue Status post recent fall Declining health status Denies having any fever or chills cough cold congestion all other review of system negative , Physical examination Vitals: Reviewed General: No acute distress HEENT: Oral mucosa moist no pallor or icterus Neck: Supple without any JVD thyromegaly or nodular mass Chest: Clear to auscultation, anteriorly, few basilar rales posteriorly Heart: Regular rate and rhythm S1-S2 heard no S3-S4 Abdomen: Soft nontender, bowel sounds present no renal bruit no suprapubic masses no CVA tenderness noted Extremity: Minimal edema dry skin no peripheral cyanosis Endocrine: Thyroid not enlarged Psychiatric: No agitation and aggression noted Musculoskeletal: No joint effusion noted Labs and x-rays: Reviewed from this admission Past History Past Surgical History: Other (Toe Surgery, AV Fistula) Social history: , lives with family. denies: smoking, alcohol abuse, prescription drug abuse Family history: diabetes, hypertension Medications and Allergies Allergies Allergy/AdvReac Type Severity Reaction Status Date / Time No Known Allergies Allergy Verified 02/21/14 22:42 Home Medications Medication Instructions Recorded Confirmed Last Taken Type Doxazosin Mesylate [Cardura Xl] 4 mg PO BID 07/12/16 04/09/17 05/29/18 History Ferric Citrate (Nf) [Auryxia (Nf)] 210 mg PO BID 07/12/16 04/09/17 Unknown History Gabapentin [Neurontin] 300 mg PO QHS 07/12/16 05/29/18 05/28/18 History 300 Insulin Detemir [Levemir VIAL] 20 unit SQ QHS 07/12/16 05/29/18 05/28/18 History 20 Losartan [Cozaar] 100 mg PO QDAY 07/12/16 05/29/18 05/29/18 History 100 Metoprolol [Lopressor TAB] 25 mg PO BID 07/12/16 04/09/17 Unknown History Simvastatin [Zocor TAB] 80 mg PO QHS 07/12/16 04/09/17 Unknown History amLODIPine [Norvasc] 10 mg PO DAILY 07/12/16 04/09/17 05/29/18 History 10 cloNIDine [Catapres] 0.2 mg PO DAILY PRN 05/29/18 05/29/18 History 0.2 Active Meds: Active Medications Acetaminophen (Tylenol) 650 mg PO Q4H PRN PRN Reason: Pain MILD(1-3)/Fever >100.5/CAREY Albuterol (Proventil) 2.5 mg IH Q4HRT PRN PRN Reason: Shortness Of Breath Famotidine (Pepcid) 20 mg PO DAILY [facility] Last Admin: 05/29/18 23:09 Dose: 20 mg Documented by: Hydralazine HCl (Apresoline) 5 mg IV Q6H PRN PRN Reason: Hypertension Azithromycin 500 mg/ Sodium (Chloride) 250 mls @ 250 mls/hr IV Q24H [facility]; Protocol Last Admin: 05/29/18 23:10 Dose: 250 mls/hr Documented by: Ceftriaxone Sodium (Rocephin/Ns 2 Gm/100 Ml) 2 gm in 100 mls @ 200 mls/hr IV Q24H [facility]; Protocol Last Admin: 05/29/18 22:00 Dose: 200 mls/hr Documented by: Ondansetron HCl (Zofran) 4 mg IV Q8H PRN PRN Reason: Nausea And Vomiting Sodium Chloride (Sodium Chloride Flush Syringe 10 Ml) 10 ml IV BID [facility] Last Admin: 05/29/18 23:09 Dose: 10 ml Documented by: Sodium Chloride (Sodium Chloride Flush Syringe 10 Ml) 10 ml IV PRN PRN PRN Reason: LINE FLUSH Exam - Vital Signs Vital signs: Vital Signs Temp Pulse Resp BP Pulse Ox 99.4 F 103 H 16 159/81 90 05/29/18 14:20 05/29/18 14:20 05/29/18 14:20 05/29/18 14:20 05/29/18 14:20 Results - Lab Results 05/30/18 06:50 05/30/18 12:16 Most recent lab results Calcium 9.5 mg/dL (8.4-10.2) 05/30/18 06:50
[2018-05-30] MEDS ORDERED: CALCIUM CHLORIDE IVP ONE (09:59)
[2018-05-30] MEDS ORDERED: D50W (25GM) Syringe IV ONE (09:59)
[2018-05-30] MEDS ORDERED: HumuLIN R IV ONE (10:30)
[2018-05-30] MEDS ORDERED: CALCIUM CHLORIDE 1,000 MG in NACL 0.9% 100 ML IV ONE (11:00)
[2018-05-30] MEDS: PEPCID PO SCH (11:21)
[2018-05-30] MEDS: SODIUM CHLORIDE FLUSH SYRINGE 10 ML IV SCH ×2 (11:22→23:20)
--- NOTE | 2018-05-30 16:59 | Progress Note ---
Assessment and Plan Assessment and plan: 72-year-old man with history of end-stage renal disease who presented with generalized weakness. The patient is able to use a walker at baseline. He has been so weak that he has been essentially bedbound. Diagnoses End-stage renal disease Hyperkalemia, Anemia of chronic disease Fever Left lung pneumonia Hypertensive urgency Plan Hemodialysis per nephrology, losartan as been discontinued Fever workup has been ordered including blood cultures Continue antibiotics for Treatment of pneumonia Optimize blood pressure medications History Interval history: Review of systems Constitutional: No fevers, no malaise, no joint pains CVS: No chest pain, no orthopnea, no dyspnea on exertion, no pedal edema GI: No abdominal pain, no diarrhea, no vomiting, no constipation Respiratory: No shortness of breath, no wheezing, c/o dry cough Hospitalist Physical - Physical exam Narrative exam: General.: Appears well, no distress, nontoxic HEENT: Moist mucous membranes, extraocular muscles intact, no lymphadenopathy Neck: supple Cardiac: S1-S2 heard Lungs: crackles on left side Abdomen: soft , nontender, nondistended, bowel sounds positive Extremities: no edema clubbing or cyanosis Skin: no rash or lesions Neurologic: no gross focal deficits Psych: calm, and cooperative - Constitutional Vitals: Temp Pulse Resp BP Pulse Ox 98.6 F 104 H 18 193/98 95 05/30/18 12:36 05/30/18 12:36 05/30/18 12:36 05/30/18 12:36 05/30/18 12:36 General appearance: Present: mild distress, obese Results - Labs CBC & Chem 7: 05/30/18 06:50 05/30/18 12:16 Labs: Laboratory Last Values WBC 25.0 K/mm3 (4.5-11.0) H 05/30/18 06:50 RBC 3.36 M/mm3 (3.65-5.03) L 05/30/18 06:50 Hgb 11.4 gm/dl (11.8-15.2) L 05/30/18 06:50 Hct 35.0 % (35.5-45.6) L 05/30/18 06:50 MCV 104 fl (84-94) H 05/30/18 06:50 MCH 34 pg (28-32) H 05/30/18 06:50 MCHC 33 % (32-34) 05/30/18 06:50 RDW 14.4 % (13.2-15.2) 05/30/18 06:50 Plt Count 220 K/mm3 (140-440) 05/30/18 06:50 Add Manual Diff Complete 05/30/18 06:50 Total Counted 100 05/30/18 06:50 Seg Neuts % (Manual) 90.0 % (40.0-70.0) H 05/30/18 06:50 Band Neutrophils % 0 % 05/30/18 06:50 Lymphocytes % (Manual) 3.0 % (13.4-35.0) L 05/30/18 06:50 Reactive Lymphs % (Man) 0 % 05/30/18 06:50 Monocytes % (Manual) 4.0 % (0.0-7.3) 05/30/18 06:50 Eosinophils % (Manual) 3.0 % (0.0-4.3) 05/30/18 06:50 Basophils % (Manual) 0 % (0.0-1.8) 05/30/18 06:50 Metamyelocytes % 0 % 05/30/18 06:50 Myelocytes % 0 % 05/30/18 06:50 Promyelocytes % 0 % 05/30/18 06:50 Blast Cells % 0 % 05/30/18 06:50 Nucleated RBC % Not Reportable 05/30/18 06:50 Seg Neutrophils # Man 22.5 K/mm3 (1.8-7.7) H 05/30/18 06:50 Band Neutrophils # 0.0 K/mm3 05/30/18 06:50 Lymphocytes # (Manual) 0.8 K/mm3 (1.2-5.4) L 05/30/18 06:50 Abs React Lymphs (Man) 0.0 K/mm3 05/30/18 06:50 Monocytes # (Manual) 1.0 K/mm3 (0.0-0.8) H 05/30/18 06:50 Eosinophils # (Manual) 0.8 K/mm3 (0.0-0.4) H 05/30/18 06:50 Basophils # (Manual) 0.0 K/mm3 (0.0-0.1) 05/30/18 06:50 Metamyelocytes # 0.0 K/mm3 05/30/18 06:50 Myelocytes # 0.0 K/mm3 05/30/18 06:50 Promyelocytes # 0.0 K/mm3 05/30/18 06:50 Blast Cells # 0.0 K/mm3 05/30/18 06:50 WBC Morphology Not Reportable 05/30/18 06:50 Hypersegmented Neuts Not Reportable 05/30/18 06:50 Hyposegmented Neuts Not Reportable 05/30/18 06:50 Hypogranular Neuts Not Reportable 05/30/18 06:50 Smudge Cells Not Reportable 05/30/18 06:50 Toxic Granulation Not Reportable 05/30/18 06:50 Toxic Vacuolation Not Reportable 05/30/18 06:50 Dohle Bodies Not Reportable 05/30/18 06:50 Pelger-Huet Anomaly Not Reportable 05/30/18 06:50 Mohamud Rods Not Reportable 05/30/18 06:50 Platelet Estimate Consistent w auto 05/30/18 06:50 Clumped Platelets Not Reportable 05/30/18 06:50 Plt Clumps, EDTA Not Reportable 05/30/18 06:50 Large Platelets Not Reportable 05/30/18 06:50 Giant Platelets Rare 05/30/18 06:50 Platelet Satelliting Not Reportable 05/30/18 06:50 Plt Morphology Comment Not Reportable 05/30/18 06:50 RBC Morphology Not Reportable 05/30/18 06:50 Dimorphic RBCs Not Reportable 05/30/18 06:50 Polychromasia Not Reportable 05/30/18 06:50 Hypochromasia Not Reportable 05/30/18 06:50 Poikilocytosis 1+ 05/30/18 06:50 Anisocytosis 1+ 05/30/18 06:50 Microcytosis Not Reportable 05/30/18 06:50 Macrocytosis Few 05/30/18 06:50 Spherocytes Not Reportable 05/30/18 06:50 Pappenheimer Bodies Not Reportable 05/30/18 06:50 Sickle Cells Not Reportable 05/30/18 06:50 Target Cells Rare 05/30/18 06:50 Tear Drop Cells Not Reportable 05/30/18 06:50 Ovalocytes Not Reportable 05/30/18 06:50 Helmet Cells Not Reportable 05/30/18 06:50 Ugarte-[place] Bodies Not Reportable 05/30/18 06:50 [place] Rings Not Reportable 05/30/18 06:50 Ciro Cells Not Reportable 05/30/18 06:50 Bite Cells Not Reportable 05/30/18 06:50 Crenated Cell Not Reportable 05/30/18 06:50 Elliptocytes Not Reportable 05/30/18 06:50 Acanthocytes (Spur) Not Reportable 05/30/18 06:50 Rouleaux Not Reportable 05/30/18 06:50 Hemoglobin C Crystals Not Reportable 05/30/18 06:50 Schistocytes Not Reportable 05/30/18 06:50 Malaria parasites Not Reportable 05/30/18 06:50 Barry Bodies Not Reportable 05/30/18 06:50 Hem Pathologist Commnt No 05/30/18 06:50 PT 14.1 Sec. (12.2-14.9) 05/29/18 15:49 INR 1.03 (0.87-1.13) 05/29/18 15:49 APTT 29.1 Sec. (24.2-36.6) 05/29/18 15:49 Sodium 136 mmol/L (137-145) L 05/30/18 06:50 Potassium 6.2 mmol/L (3.6-5.0) H* 05/30/18 12:16 Chloride 98.5 mmol/L (98-107) 05/30/18 06:50 Carbon Dioxide 26 mmol/L (22-30) 05/30/18 06:50 Anion Gap 18 mmol/L 05/30/18 06:50 BUN 80 mg/dL (9-20) H 05/30/18 06:50 Creatinine 14.8 mg/dL (0.8-1.5) H 05/30/18 06:50 Estimated GFR 4 ml/min 05/30/18 06:50 BUN/Creatinine Ratio 5 % 05/30/18 06:50 Glucose 121 mg/dL (75-100) H 05/30/18 06:50 Lactic Acid 1.50 mmol/L (0.7-2.0) 05/29/18 16:44 Calcium 9.5 mg/dL (8.4-10.2) 05/30/18 06:50 Total Bilirubin 0.50 mg/dL (0.1-1.2) 05/29/18 15:49 Direct Bilirubin < 0.2 mg/dL (0-0.2) 05/29/18 15:49 Indirect Bilirubin 0.3 mg/dL 05/29/18 15:49 AST 29 units/L (5-40) 05/29/18 15:49 ALT 10 units/L (7-56) 05/29/18 15:49 Alkaline Phosphatase 71 units/L (35-129) 05/29/18 15:49 Troponin T 0.115 ng/mL (0.00-0.029) H* 05/29/18 15:49 Total Protein 7.9 g/dL (6.3-8.2) 05/29/18 15:49 Albumin 3.8 g/dL (3.9-5) L 05/29/18 15:49 Albumin/Globulin Ratio 0.9 % 05/29/18 15:49 Triglycerides 78 mg/dL (2-149) 05/29/18 15:49 Cholesterol 154 mg/dL (50-199) 05/29/18 15:49 LDL Cholesterol Direct 90 mg/dL (50-130) 05/29/18 15:49 HDL Cholesterol 49 mg/dL (40-59) 05/29/18 15:49 Cholesterol/HDL Ratio 3.14 % 05/29/18 15:49
[2018-05-30 18:05] LABS: Hepatitis C Virus Antibody Non-Reactive (NonReactive)
[2018-05-30] MEDS: ROCEPHIN/NS 2 GM/100 ML 2 GM/100 ML BAG IV SCH (22:51)
[2018-05-30] MEDS: PROCARDIA XL PO SCH (22:51)
[2018-05-30] MEDS: ZITHROMAX 500 MG in NACL 0.9% 250ML 250 ML IV SCH (22:52)
--- NOTE | 2018-05-31 09:37 | Progress Note ---
Assessment and Plan Assessment and plan: 72-year-old man with history of end-stage renal disease who presented with generalized weakness. The patient is able to use a walker at baseline. He has been so weak that he has been essentially bedbound. Diagnoses End-stage renal disease Hyperkalemia, Anemia of chronic disease Fever Sepsis Left lung pneumonia Hypertensive urgency Plan Hemodialysis per nephrology, losartan as been discontinued fup blood cultures Continue antibiotics for Treatment of pneumonia Optimize blood pressure medications Tentative dc home tomorrow if K normal, and if tachcardia resolves History Interval history: Review of systems Constitutional: No fevers, no malaise, no joint pains CVS: No chest pain, no orthopnea, no dyspnea on exertion, no pedal edema GI: No abdominal pain, no diarrhea, no vomiting, no constipation Respiratory: No shortness of breath, no wheezing, c/o dry cough Hospitalist Physical - Physical exam Narrative exam: General.: Appears well, no distress, nontoxic HEENT: Moist mucous membranes, extraocular muscles intact, no lymphadenopathy Neck: supple Cardiac: S1-S2 heard Lungs: crackles on left side Abdomen: soft , nontender, nondistended, bowel sounds positive Extremities: no edema clubbing or cyanosis Skin: no rash or lesions Neurologic: no gross focal deficits Psych: calm, and cooperative - Constitutional Vitals: Temp Pulse Resp BP Pulse Ox 99.6 F 86 16 141/77 96 05/31/18 04:17 05/31/18 08:35 05/31/18 08:35 05/31/18 04:17 05/31/18 08:35 General appearance: Present: mild distress, obese Results - Labs CBC & Chem 7: 05/31/18 11:46 05/31/18 11:46 Labs: Laboratory Last Values WBC 25.0 K/mm3 (4.5-11.0) H 05/30/18 06:50 RBC 3.36 M/mm3 (3.65-5.03) L 05/30/18 06:50 Hgb 11.4 gm/dl (11.8-15.2) L 05/30/18 06:50 Hct 35.0 % (35.5-45.6) L 05/30/18 06:50 MCV 104 fl (84-94) H 05/30/18 06:50 MCH 34 pg (28-32) H 05/30/18 06:50 MCHC 33 % (32-34) 05/30/18 06:50 RDW 14.4 % (13.2-15.2) 05/30/18 06:50 Plt Count 220 K/mm3 (140-440) 05/30/18 06:50 Add Manual Diff Complete 05/30/18 06:50 Total Counted 100 05/30/18 06:50 Seg Neuts % (Manual) 90.0 % (40.0-70.0) H 05/30/18 06:50 Band Neutrophils % 0 % 05/30/18 06:50 Lymphocytes % (Manual) 3.0 % (13.4-35.0) L 05/30/18 06:50 Reactive Lymphs % (Man) 0 % 05/30/18 06:50 Monocytes % (Manual) 4.0 % (0.0-7.3) 05/30/18 06:50 Eosinophils % (Manual) 3.0 % (0.0-4.3) 05/30/18 06:50 Basophils % (Manual) 0 % (0.0-1.8) 05/30/18 06:50 Metamyelocytes % 0 % 05/30/18 06:50 Myelocytes % 0 % 05/30/18 06:50 Promyelocytes % 0 % 05/30/18 06:50 Blast Cells % 0 % 05/30/18 06:50 Nucleated RBC % Not Reportable 05/30/18 06:50 Seg Neutrophils # Man 22.5 K/mm3 (1.8-7.7) H 05/30/18 06:50 Band Neutrophils # 0.0 K/mm3 05/30/18 06:50 Lymphocytes # (Manual) 0.8 K/mm3 (1.2-5.4) L 05/30/18 06:50 Abs React Lymphs (Man) 0.0 K/mm3 05/30/18 06:50 Monocytes # (Manual) 1.0 K/mm3 (0.0-0.8) H 05/30/18 06:50 Eosinophils # (Manual) 0.8 K/mm3 (0.0-0.4) H 05/30/18 06:50 Basophils # (Manual) 0.0 K/mm3 (0.0-0.1) 05/30/18 06:50 Metamyelocytes # 0.0 K/mm3 05/30/18 06:50 Myelocytes # 0.0 K/mm3 05/30/18 06:50 Promyelocytes # 0.0 K/mm3 05/30/18 06:50 Blast Cells # 0.0 K/mm3 05/30/18 06:50 WBC Morphology Not Reportable 05/30/18 06:50 Hypersegmented Neuts Not Reportable 05/30/18 06:50 Hyposegmented Neuts Not Reportable 05/30/18 06:50 Hypogranular Neuts Not Reportable 05/30/18 06:50 Smudge Cells Not Reportable 05/30/18 06:50 Toxic Granulation Not Reportable 05/30/18 06:50 Toxic Vacuolation Not Reportable 05/30/18 06:50 Dohle Bodies Not Reportable 05/30/18 06:50 Pelger-Huet Anomaly Not Reportable 05/30/18 06:50 Mohamud Rods Not Reportable 05/30/18 06:50 Platelet Estimate Consistent w auto 05/30/18 06:50 Clumped Platelets Not Reportable 05/30/18 06:50 Plt Clumps, EDTA Not Reportable 05/30/18 06:50 Large Platelets Not Reportable 05/30/18 06:50 Giant Platelets Rare 05/30/18 06:50 Platelet Satelliting Not Reportable 05/30/18 06:50 Plt Morphology Comment Not Reportable 05/30/18 06:50 RBC Morphology Not Reportable 05/30/18 06:50 Dimorphic RBCs Not Reportable 05/30/18 06:50 Polychromasia Not Reportable 05/30/18 06:50 Hypochromasia Not Reportable 05/30/18 06:50 Poikilocytosis 1+ 05/30/18 06:50 Anisocytosis 1+ 05/30/18 06:50 Microcytosis Not Reportable 05/30/18 06:50 Macrocytosis Few 05/30/18 06:50 Spherocytes Not Reportable 05/30/18 06:50 Pappenheimer Bodies Not Reportable 05/30/18 06:50 Sickle Cells Not Reportable 05/30/18 06:50 Target Cells Rare 05/30/18 06:50 Tear Drop Cells Not Reportable 05/30/18 06:50 Ovalocytes Not Reportable 05/30/18 06:50 Helmet Cells Not Reportable 05/30/18 06:50 Ugarte-[place] Bodies Not Reportable 05/30/18 06:50 [place] Rings Not Reportable 05/30/18 06:50 [place] Cells Not Reportable 05/30/18 06:50 Bite Cells Not Reportable 05/30/18 06:50 Crenated Cell Not Reportable 05/30/18 06:50 Elliptocytes Not Reportable 05/30/18 06:50 Acanthocytes (Spur) Not Reportable 05/30/18 06:50 Rouleaux Not Reportable 05/30/18 06:50 Hemoglobin C Crystals Not Reportable 05/30/18 06:50 Schistocytes Not Reportable 05/30/18 06:50 Malaria parasites Not Reportable 05/30/18 06:50 Barry Bodies Not Reportable 05/30/18 06:50 Hem Pathologist Commnt No 05/30/18 06:50 PT 14.1 Sec. (12.2-14.9) 05/29/18 15:49 INR 1.03 (0.87-1.13) 05/29/18 15:49 APTT 29.1 Sec. (24.2-36.6) 05/29/18 15:49 Sodium 136 mmol/L (137-145) L 05/30/18 06:50 Potassium 6.2 mmol/L (3.6-5.0) H* 05/30/18 12:16 Chloride 98.5 mmol/L (98-107) 05/30/18 06:50 Carbon Dioxide 26 mmol/L (22-30) 05/30/18 06:50 Anion Gap 18 mmol/L 05/30/18 06:50 BUN 80 mg/dL (9-20) H 05/30/18 06:50 Creatinine 14.8 mg/dL (0.8-1.5) H 05/30/18 06:50 Estimated GFR 4 ml/min 05/30/18 06:50 BUN/Creatinine Ratio 5 % 05/30/18 06:50 Glucose 121 mg/dL (75-100) H 05/30/18 06:50 Lactic Acid 1.50 mmol/L (0.7-2.0) 05/29/18 16:44 Calcium 9.5 mg/dL (8.4-10.2) 05/30/18 06:50 Total Bilirubin 0.50 mg/dL (0.1-1.2) 05/29/18 15:49 Direct Bilirubin < 0.2 mg/dL (0-0.2) 05/29/18 15:49 Indirect Bilirubin 0.3 mg/dL 05/29/18 15:49 AST 29 units/L (5-40) 05/29/18 15:49 ALT 10 units/L (7-56) 05/29/18 15:49 Alkaline Phosphatase 71 units/L (35-129) 05/29/18 15:49 Troponin T 0.115 ng/mL (0.00-0.029) H* 05/29/18 15:49 Total Protein 7.9 g/dL (6.3-8.2) 05/29/18 15:49 Albumin 3.8 g/dL (3.9-5) L 05/29/18 15:49 Albumin/Globulin Ratio 0.9 % 05/29/18 15:49 Triglycerides 78 mg/dL (2-149) 05/29/18 15:49 Cholesterol 154 mg/dL (50-199) 05/29/18 15:49 LDL Cholesterol Direct 90 mg/dL (50-130) 05/29/18 15:49 HDL Cholesterol 49 mg/dL (40-59) 05/29/18 15:49 Cholesterol/HDL Ratio 3.14 % 05/29/18 15:49 Hepatitis A IgM Ab Non-reactive (NonReactive) 05/30/18 17:17 Hep B Core IgM Ab Non-reactive (NonReactive) 05/30/18 17:17 Hepatitis C Antibody Non-reactive (NonReactive) 05/30/18 17:17
--- NOTE | 2018-05-31 10:00 | Progress Note ---
Subjective Interval history: Patient was seen today for follow-up on multiple renal related issues Events of this hospitalization noted His daughter is here at the bedside Has had hemodialysis yesterday Patient denies having any chest pain pressure or shortness of breath Vitals labs intake output medications were reviewed Social history: Reviewed Allergies: Reviewed Family history: Reviewed Physical examination HEENT: Oral mucosa moist no pallor or icterus Neck: Supple no JVD Chest: Clear to auscultation anteriorly CVS: Regular rate and rhythm S1 and S2 heard Abdomen: Soft nontender no suprapubic masses no organomegaly appreciable Extremity: Dry skin less than 1+ peripheral edema Musculoskeletal: No joint effusion noted in knees and ankle Neurological: Alert awake Dermatology: No petechial rashes Psychiatry: No evidence of any agitation and aggression noted Assessment and plan End-stage renal disease: Patient will continue with hemodialysis, monitor dialysis related labs Continue with hemodialysis treatment Tuesday Increase ultrafiltration goal Check labs today CBC basic metabolic profile phosphorus intact PTH Admitted with pneumonia leukocytosis: Continue to follow follow blood culture Deconditioning weakness patient unable to self-care which is concerning Will need to go to rehabilitation Anemia in end-stage renal disease: Monitor hemoglobin and hematocrit, erythropoietin as needed Secondary hyperparathyroidism periodically check phosphorus and PTH level Hypertension and volume: , Adjust medications as needed, ultrafiltration as tolerated keep systolic blood pressure above 100 Malnutrition risk: High please consider high protein diet as well as nutrition follow-up, patient needs at least 1.5 g protein per KG body weight Hyperkalemia: Mild to moderate will need follow-up on the potassium level Extensively counseled and educated regarding multiple renal related issues and issues during this hospitalization with patient daughter Patient was adequately counseled and educated regarding multiple renal related issues Pertinent lab findings were discussed with patient, patient does exhibit good understanding of renal issues We'll continue to follow and make recommendation from renal standpoint Objective - Vital Signs Vital signs: Vital Signs - 12hr 05/30/18 05/31/18 05/31/18 23:43 04:17 08:35 Temperature 98.3 F 99.6 F Pulse Rate 112 H 106 H Pulse Rate [ 86 Apical] Respiratory 18 18 16 Rate Blood Pressure 149/69 141/77 Blood Pressure [Right] O2 Sat by Pulse 96 99 96 Oximetry 05/31/18 09:37 Temperature 98.9 F Pulse Rate 101 H Pulse Rate [ Apical] Respiratory 20 Rate Blood Pressure Blood Pressure 142/72 [Right] O2 Sat by Pulse 95 Oximetry - Lab 05/31/18 11:46 05/31/18 11:46 Most recent lab results Calcium 9.5 mg/dL (8.4-10.2) 05/30/18 06:50 Medications & Allergies - Medications Allergies/Adverse Reactions: Allergies No Known Allergies Allergy (Verified 02/21/14 22:42) Home Medications: Home Medications Medication Instructions Recorded Confirmed Last Taken Type Doxazosin Mesylate [Cardura Xl] 4 mg PO BID 07/12/16 04/09/17 05/29/18 History Ferric Citrate (Nf) [Auryxia (Nf)] 210 mg PO BID 07/12/16 04/09/17 Unknown History Gabapentin [Neurontin] 300 mg PO QHS 07/12/16 05/29/18 05/28/18 History 300 Insulin Detemir [Levemir VIAL] 20 unit SQ QHS 07/12/16 05/29/18 05/28/18 History 20 Losartan [Cozaar] 100 mg PO QDAY 07/12/16 05/29/18 05/29/18 History 100 Metoprolol [Lopressor TAB] 25 mg PO BID 07/12/16 04/09/17 Unknown History Simvastatin [Zocor TAB] 80 mg PO QHS 07/12/16 04/09/17 Unknown History amLODIPine [Norvasc] 10 mg PO DAILY 07/12/16 04/09/17 05/29/18 History 10 cloNIDine [Catapres] 0.2 mg PO DAILY PRN 05/29/18 05/29/18 History 0.2 Active Medications: Generic Name Dose Route Start Last Admin Trade Name Freq PRN Reason Stop Dose Admin Acetaminophen 650 mg 05/29/18 19:33 05/31/18 05:17 Tylenol PO 650 mg Q4H PRN Administration Pain MILD(1-3)/Fever >100.5/CAREY Albuterol 2.5 mg 05/29/18 19:33 Proventil IH Q4HRT PRN Shortness Of Breath Famotidine 20 mg 05/29/18 22:00 05/30/18 11:21 Pepcid PO 20 mg DAILY FUNMILAYO Administration Hydralazine HCl 10 mg 05/30/18 16:52 05/30/18 23:30 Apresoline IV 10 mg Q4HR PRN Administration BP >160/100 Azithromycin 500 mg/ Sodium 250 mls @ 250 mls/hr 05/29/18 21:00 05/31/18 05:15 Chloride IV Infused Q24H FUNMILAYO Infusion Protocol Ceftriaxone Sodium 2 gm in 100 mls @ 200 mls/hr 05/29/18 22:00 05/31/18 05:16 Rocephin/Ns 2 Gm/100 Ml IV Infused Q24H FUNMILAYO Infusion Protocol Sodium Chloride 100 mls @ 999 mls/hr 05/30/18 09:54 Nacl 0.9% IV LIZY PRN Hypotension Nifedipine 60 mg 05/30/18 22:00 05/30/18 22:51 Procardia Xl PO 60 mg Q12HR FUNMILAYO Administration Ondansetron HCl 4 mg 05/29/18 19:33 Zofran IV Q8H PRN Nausea And Vomiting Sodium Chloride 10 ml 05/29/18 22:00 05/30/18 23:20 Sodium Chloride Flush Syringe 10 Ml IV 10 ml BID FUNMILAYO Administration Sodium Chloride 10 ml 05/29/18 19:33 Sodium Chloride Flush Syringe 10 Ml IV PRN PRN LINE FLUSH
[2018-05-31] MEDS: SODIUM CHLORIDE FLUSH SYRINGE 10 ML IV SCH ×2 (10:44→21:53)
[2018-05-31] MEDS: PROCARDIA XL PO SCH ×2 (10:57→22:03)
[2018-05-31] MEDS: PEPCID PO SCH (10:58)
--- NOTE | 2018-05-31 11:38 | Cat Scan Report ---
CT CHEST WITHOUT CONTRAST: HISTORY: Lung mass versus infiltrate, fever. COMPARISON: none. TECHNIQUE: Helical CT in 1.25mm intervals without IV contrast. Sagittal and coronal reformatted images. FINDINGS: Thyroid gland: Normal. Tracheobronchial tree: Normal. Esophagus: Normal. Heart: Mild cardiomegaly. Moderate coronary artery calcifications. Pericardium: Normal. Mediastinum: Normal. Lung Ramirez: Normal. Pleural Spaces: Trace bilateral pleural effusions. Musculoskeletal: Intact. Moderate thoracic spondylosis. IMPRESSION: Cardiomegaly. Trace bilateral pleural effusions.
[2018-05-31 13:06] LABS: Calcium 9.7 mg/dL (8.4-10.2)
[2018-05-31 13:20] LABS: Hematocrit 34.5 % (35.5-45.6); Hemoglobin 11.3 gm/dl (11.8-15.2); Mean Corpuscular HGB Conc 33 % (32-34); Mean Corpuscular Volume 104 fl (84-94); Platelet Count 234 K/mm3 (140-440); Red Blood Count 3.33 M/mm3 (3.65-5.03); Red Cell Distribution Width 14.5 % (13.2-15.2)
[2018-05-31 14:02] LABS: Basophils % (Manual) 0 % (0.0-1.8); Total Cells Counted 100
[2018-05-31 14:03] LABS: Anisocytosis 1+; Macrocytosis Few; Platelet Estimate Consistent w Auto; Poikilocytosis 1+; Target Cells Rare
[2018-05-31] MEDS: ZITHROMAX 500 MG in NACL 0.9% 250ML 250 ML IV SCH (21:52)
[2018-05-31] MEDS: ROCEPHIN/NS 2 GM/100 ML 2 GM/100 ML BAG IV SCH (21:52)
--- NOTE | 2018-06-01 08:44 | Discharge Summary ---
Providers - Providers Date of Admission: 05/29/18 19:33 Attending physician: GINGER BOTELLO MD 05/29/18 19:35 Consult to Physician [CONS] Routine Comment: Consulting Provider: PARMINDER CORMIER Physician Instructions: Reason For Exam: ESRD Primary care physician: VÍCTOR NELSON Hospitalization Condition: Stable Hospital course: 72-year-old man with history of end-stage renal disease who presented with generalized weakness. The patient is able to use a walker at baseline. He has been so weak that he has been essentially bedbound. Diagnoses End-stage renal disease Hyperkalemia, Anemia of chronic disease Fever Sepsis Left lung pneumonia Hypertensive urgency Type 2 diabetes Hospital course The patient received hemodialysis. Due to hyperkalemia, losartan was discontinued. The patient was found to have pneumonia. Treated with antibiotics, he clinically improved and was discharged on oral antibiotics. Blood pressure medications were optimized. The patient was found to have diabetes for which was put on pre-meal insulin sliding scale Disposition: [id number]/[place]-[id number] [facility] Time spent for discharge: 35 minutes Core Measure Documentation - Palliative Care Palliative Care/ Comfort Measures: Not Applicable - Core Measures Any of the following diagnoses?: none Exam - Constitutional Vitals: Temp Pulse Resp BP Pulse Ox 98.6 F 92 H 20 135/61 91 06/01/18 05:18 06/01/18 05:18 06/01/18 05:18 06/01/18 05:18 06/01/18 05:18 General appearance: Present: no acute distress, well-nourished - EENT Eyes: Present: PERRL ENT: hearing intact, clear oral mucosa - Neck Neck: Present: supple, normal ROM - Respiratory Respiratory effort: normal Respiratory: bilateral: CTA - Cardiovascular Heart Sounds: Present: S1 & S2. Absent: rub, click - Extremities Extremities: pulses symmetrical, No edema Peripheral Pulses: within normal limits - Abdominal General gastrointestinal: Present: soft, non-tender, non-distended, normal bowel sounds Male genitourinary: Present: normal - Integumentary Integumentary: Present: clear, warm, dry - Musculoskeletal Musculoskeletal: gait normal, strength equal bilaterally - Psychiatric Psychiatric: appropriate mood/affect, intact judgment & insight - Neurologic Neurologic: CNII-XII intact, moves all extremities Plan Follow up with: VÍCTOR NELSON MD [Primary Care Provider] - 3-5 Days Prescriptions: Insulin Lispro [HumaLOG VIAL] 0 units SQ AC #1 vial NIFEdipine XL [Procardia Xl] 60 mg PO Q12HR #60 tablet
--- NOTE | 2018-06-01 09:14 | Progress Note ---
Subjective Interval history: Patient was seen today for follow-up on multiple renal related issues Patient is being dialyzed at [facility] facility Met with his daughter yesterday and explained at length about patient's overall status He has been fairly deconditioned lately and unable to self-care. This has been also discussed with his as well Vitals labs intake output medications were reviewed Social history: Reviewed Allergies: Reviewed Family history: Reviewed Physical examination HEENT: Oral mucosa moist no pallor or icterus Neck: Supple no JVD Chest: Clear to auscultation anteriorly CVS: Regular rate and rhythm S1 and S2 heard Abdomen: Soft nontender no suprapubic masses no organomegaly appreciable Extremity: Dry skin less than 1+ peripheral edema Musculoskeletal: No joint effusion noted in knees and ankle Neurological: Alert awake Dermatology: No petechial rashes Psychiatry: No evidence of any agitation and aggression noted Assessment and plan End-stage renal disease: Patient will continue with hemodialysis, monitor dialysis related labs Continue with hemodialysis treatment Tuesday, outpatient dialysis days are Tuesday at [facility] Ultrafiltration as tolerated Hyperkalemia appears to have resolved Deconditioned weakness high risk for fall, patient needs rehabilitation di scussed with daughter yesterday at length Matured with pneumonia sepsis-like picture clinically doing much better overall doing much better from renal standpoint We'll continue to follow and make recommendation from renal standpoint Objective - Vital Signs Vital signs: Vital Signs - 12hr 05/31/18 05/31/18 06/01/18 21:55 22:00 00:04 Temperature 99.6 F Pulse Rate 86 Pulse Rate [ 97 H Apical] Respiratory 16 20 Rate Blood Pressure 131/61 O2 Sat by Pulse 96 96 93 Oximetry 06/01/18 06/01/18 06/01/18 04:00 05:18 08:43 Temperature 98.6 F 99.2 F Pulse Rate 92 H 92 H 92 H Pulse Rate [ Apical] Respiratory 20 20 Rate Blood Pressure 135/61 130/78 O2 Sat by Pulse 91 96 Oximetry - Lab 05/31/18 11:46 05/31/18 11:46 Most recent lab results Calcium 9.7 mg/dL (8.4-10.2) 05/31/18 11:46 Phosphorus 4.30 mg/dL (2.5-4.5) 05/31/18 11:46 Medications & Allergies - Medications Allergies/Adverse Reactions: Allergies No Known Allergies Allergy (Verified 02/21/14 22:42) Home Medications: Home Medications Medication Instructions Recorded Confirmed Last Taken Type Doxazosin Mesylate [Cardura Xl] 4 mg PO BID 07/12/16 04/09/17 05/29/18 History Ferric Citrate (Nf) [Auryxia (Nf)] 210 mg PO BID 07/12/16 04/09/17 Unknown History Gabapentin [Neurontin] 300 mg PO QHS 07/12/16 05/29/18 05/28/18 History 300 Insulin Detemir [Levemir VIAL] 20 unit SQ QHS 07/12/16 05/29/18 05/28/18 History 20 Losartan [Cozaar] 100 mg PO QDAY 07/12/16 05/29/18 05/29/18 History 100 Metoprolol [Lopressor TAB] 25 mg PO BID 07/12/16 04/09/17 Unknown History Simvastatin [Zocor TAB] 80 mg PO QHS 07/12/16 04/09/17 Unknown History amLODIPine [Norvasc] 10 mg PO DAILY 07/12/16 04/09/17 05/29/18 History 10 cloNIDine [Catapres] 0.2 mg PO DAILY PRN 05/29/18 05/29/18 History 0.2 Active Medications: Generic Name Dose Route Start Last Admin Trade Name Freq PRN Reason Stop Dose Admin Acetaminophen 650 mg 05/29/18 19:33 05/31/18 05:17 Tylenol PO 650 mg Q4H PRN Administration Pain MILD(1-3)/Fever >100.5/CAREY Albuterol 2.5 mg 05/29/18 19:33 Proventil IH Q4HRT PRN Shortness Of Breath Famotidine 20 mg 05/29/18 22:00 05/31/18 10:58 Pepcid PO 20 mg DAILY FUNMILAYO Administration Hydralazine HCl 10 mg 05/30/18 16:52 05/30/18 23:30 Apresoline IV 10 mg Q4HR PRN Administration BP >160/100 Azithromycin 500 mg/ Sodium 250 mls @ 250 mls/hr 05/29/18 21:00 05/31/18 22:52 Chloride IV Infused Q24H FUNMILAOY Infusion Protocol Ceftriaxone Sodium 2 gm in 100 mls @ 200 mls/hr 05/29/18 22:00 05/31/18 22:22 Rocephin/Ns 2 Gm/100 Ml IV Infused Q24H FUNMILAYO Infusion Protocol Sodium Chloride 100 mls @ 999 mls/hr 05/30/18 09:54 Nacl 0.9% IV LIZY PRN Hypotension Nifedipine 60 mg 05/30/18 22:00 05/31/18 22:03 Procardia Xl PO 60 mg Q12HR FUNMILAYO Administration Ondansetron HCl 4 mg 05/29/18 19:33 Zofran IV Q8H PRN Nausea And Vomiting Sodium Chloride 10 ml 05/29/18 22:00 05/31/18 21:53 Sodium Chloride Flush Syringe 10 Ml IV 10 ml BID FUNMILAYO Administration Sodium Chloride 10 ml 05/29/18 19:33 Sodium Chloride Flush Syringe 10 Ml IV PRN PRN LINE FLUSH
[2018-06-01] MEDS: SODIUM CHLORIDE FLUSH SYRINGE 10 ML IV SCH (10:12)
[2018-06-01] MEDS: PEPCID PO SCH (10:12)
[2018-06-01] MEDS: PROCARDIA XL PO SCH (10:12)
[2018-06-01] MEDS ORDERED: NACL 0.9 (PRIMING MACHINE ONLY DIALYSIS) MC ONE (13:01)
[2018-06-01 16:50] VITALS: BP 140/62
[2018-06-06 09:55] LABS: Hepatitis B Surface Antigen Nonreactive (Negative)
== END 2018-06-01 17:00 | DRG 871 ==
LOC: ED 14:06 → 4A 19:33
PROVIDERS: ADMIT Internal Medicine; ATTEND Internal Medicine
PROC: 4A033R1 Measurement of Arterial Saturation, Peripheral, Percutaneous Approach (ICD-10-PCS; principal; 2018-05-29)
PROC: 5A1D70Z Performance of Urinary Filtration, Intermittent, Less than 6 Hours Per Day (ICD-10-PCS; 2018-05-30)
PROC: 5A1D70Z Performance of Urinary Filtration, Intermittent, Less than 6 Hours Per Day (ICD-10-PCS; 2018-06-01)
DX: A41.9 Sepsis, unspecified organism (principal); J18.9 Pneumonia, unspecified organism; N18.6 End stage renal disease; J96.01 Acute respiratory failure with hypoxia; K72.91 Hepatic failure, unspecified with coma; N25.81 Secondary hyperparathyroidism of renal origin; I13.2 Hypertensive heart and chronic kidney disease with heart failure and with stage 5 chronic kidney disease, or end stage renal disease; I50.40 Unspecified combined systolic (congestive) and diastolic (congestive) heart failure; E87.5 Hyperkalemia; D63.1 Anemia in chronic kidney disease; I16.0 Hypertensive urgency; E11.22 Type 2 diabetes mellitus with diabetic chronic kidney disease; E66.9 Obesity, unspecified; K21.9 Gastro-esophageal reflux disease without esophagitis; E88.81 Metabolic syndrome and other insulin resistance; Z79.4 Long term (current) use of insulin; Z79.899 Other long term (current) drug therapy; Z71.89 Other specified counseling; Z74.01 Bed confinement status; Z82.49 Family history of ischemic heart disease and other diseases of the circulatory system; Z83.3 Family history of diabetes mellitus; Z68.31 Body mass index [BMI] 31.0-31.9, adult
CPT/HCPCS: 36415; 70450; 71045; 71250; 80048; 80053; 80061; 80074; 80076; 82140; 82803; 82962; 83970; 84100; 84132; 84484; 85007; 85025; 85610; 85730; 87040; 93005; 93010; 94760; G0378; J0360; J0456; J0696; J1815; J1956; J7030; J7050

== ENCOUNTER 2018-07-19 12:48 | Emergency (ER) | payer MEDICARE, OTHER ==
[2018-07-19 13:52] LABS: Basophils # (Auto) 0.1 K/mm3 (0.0-0.1); Basophils % (Auto) 0.9 % (0.0-1.8); Eosinophils # (Auto) 0.6 K/mm3 (0.0-0.4); Eosinophils % (Auto) 7.2 % (0.0-4.3); Hematocrit 38.5 % (35.5-45.6); Hemoglobin 12.5 gm/dl (11.8-15.2); Lymphocytes # (Auto) 1.4 K/mm3 (1.2-5.4); Lymphocytes % (Auto) 15.5 % (13.4-35.0); Mean Corpuscular HGB Conc 32 % (32-34); Mean Corpuscular Volume 103 fl (84-94); Monocytes # (Auto) 1.2 K/mm3 (0.0-0.8); Monocytes % (Auto) 13.1 % (0.0-7.3); Platelet Count 203 K/mm3 (140-440); Red Blood Count 3.76 M/mm3 (3.65-5.03); Red Cell Distribution Width 14.8 % (13.2-15.2)
[2018-07-19 14:15] LABS: Albumin 3.5 g/dL (3.9-5); Calcium 9.8 mg/dL (8.4-10.2)
[2018-07-19] MEDS ORDERED: PROCARDIA XL PO SCH (15:00)
--- NOTE | 2018-07-19 15:42 | Emergency Department Report ---
ED General Adult HPI - General Chief complaint: Nausea/Vomiting/Diarrhea Stated complaint: DIARRHEA,ABNORMAL LABS Time Seen by Provider: 07/19/18 13:59 Source: EMS (ems notes not available at time of chart dictation), RN notes reviewed, old records reviewed Mode of arrival: Stretcher Limitations: Physical Limitation - History of Present Illness Initial comments: This is a 72-year-old gentleman. The patient has a past medical history of anemia of chronic disease, debility, end-stage renal disease, on dialysis, Tuesday, Tuesday, Tuesday, typically resides noted personal care/residential secondary to profound debility, and he is sent to the emergency room today for evaluation of diarrhea, and reported abnormal laboratory studies. The patient had outpatient laboratory studies performed recently. The patient is not sure what he had performed. Apparently, he recently was found to have white blood cell count of 22.8 thousand, performed on 05/31/2018. The patient reports multiple episodes of nonbloody stool/diarrhea over the past 3 weeks. Today, the past 24 hours, he reports one watery loose bowel movements. He denies fevers and chills. He denies abdominal pain. He denies focal extremity weakness, numbness. He reports a dry cough. His diarrhea is intermittent, does not radiate anywhere, and he reports no exacerbating or relieving factors. -: Gradual Improves with: none Worsens with: none - Related Data Home Medications Medication Instructions Recorded Confirmed Last Taken Doxazosin Mesylate [Cardura Xl] 4 mg PO BID 07/12/16 04/09/17 05/29/18 Ferric Citrate (Nf) [Auryxia (Nf)] 210 mg PO BID 07/12/16 04/09/17 Unknown Gabapentin [Neurontin] 300 mg PO QHS 07/12/16 05/29/18 05/28/18 300 Metoprolol [Lopressor TAB] 25 mg PO BID 07/12/16 04/09/17 Unknown Simvastatin [Zocor TAB] 80 mg PO QHS 07/12/16 04/09/17 Unknown Previous Rx's Medication Instructions Recorded Last Taken Type Insulin Lispro [HumaLOG VIAL] 0 units SQ AC #1 vial 06/01/18 Unknown Rx NIFEdipine XL [Procardia Xl] 60 mg PO Q12HR #60 tablet 06/01/18 Unknown Rx Allergies Allergy/AdvReac Type Severity Reaction Status Date / Time No Known Allergies Allergy Verified 02/21/14 22:42 ED Review of Systems ROS: Stated complaint: DIARRHEA,ABNORMAL LABS Other details as noted in HPI Constitutional: malaise. denies: fever Eyes: denies: eye discharge ENT: denies: epistaxis Respiratory: cough Cardiovascular: denies: chest pain Gastrointestinal: diarrhea. denies: abdominal pain, nausea, vomiting Genitourinary: denies: dysuria Musculoskeletal: arthralgia Skin: denies: lesions Neurological: weakness Psychiatric: denies: anxiety ED Past Medical Hx - Past Medical History Hx Hypertension: Yes Hx Heart Attack/AMI: No Hx Diabetes: Yes (IDDM) Hx GERD: Yes Hx Liver Disease: No Hx Renal Disease: Yes (dialysisi mwf) Hx Seizures: No Hx Asthma: No Hx COPD: No Hx Tuberculosis: No Hx HIV: No Additional medical history: high cholesterol - Surgical History Additional Surgical History: "back sugery". amputation of left big toe, left arm AV fistula - Social History Smoking Status: Never Smoker Substance Use Type: None - Medications Home Medications: Home Medications Medication Instructions Recorded Confirmed Last Taken Type Doxazosin Mesylate [Cardura Xl] 4 mg PO BID 07/12/16 04/09/17 05/29/18 History Ferric Citrate (Nf) [Auryxia (Nf)] 210 mg PO BID 07/12/16 04/09/17 Unknown History Gabapentin [Neurontin] 300 mg PO QHS 07/12/16 05/29/18 05/28/18 History 300 Metoprolol [Lopressor TAB] 25 mg PO BID 07/12/16 04/09/17 Unknown History Simvastatin [Zocor TAB] 80 mg PO QHS 07/12/16 04/09/17 Unknown History Insulin Lispro [HumaLOG VIAL] 0 units SQ AC #1 vial 06/01/18 Unknown Rx NIFEdipine XL [Procardia Xl] 60 mg PO Q12HR #60 tablet 06/01/18 Unknown Rx ED Physical Exam - General Limitations: No Limitations General appearance: alert, in no apparent distress - Head Head exam: Present: atraumatic, normocephalic - Eye Eye exam: Present: normal appearance - ENT ENT exam: Present: normal exam, normal orophraynx, mucous membranes moist, normal external ear exam - Neck Neck exam: Present: normal inspection, full ROM. Absent: tenderness, meningismus - Respiratory Respiratory exam: Present: normal lung sounds bilaterally. Absent: respiratory distress - Cardiovascular Cardiovascular Exam: Present: regular rate, normal rhythm, normal heart sounds. Absent: bradycardia, tachycardia, irregular rhythm, systolic murmur, diastolic murmur, rubs, gallop - GI/Abdominal GI/Abdominal exam: Present: soft. Absent: distended, tenderness, guarding, rebound, rigid, pulsatile mass - Rectal Rectal exam: Present: deferred - Extremities Exam Extremities exam: Present: normal inspection (there is a left upper extremity fistula noted, no redness, pus or streaking), full ROM, other (2+ pulses noted in the bilateral upper, lower extremities. Compartments soft. No long bony tenderness. The pelvis is stable.). Absent: calf tenderness - Back Exam Back exam: Present: normal inspection, full ROM. Absent: tenderness, CVA tenderness (R), paraspinal tenderness, vertebral tenderness - Neurological Exam Neurological exam: Present: alert, other (Extraocular movements intact. Tongue midline. No facial droop. Facial sensation intact to light touch in the V1, V2, V3 distribution bilaterally. 5 and 5 strength in 4 extremities.. Sensation is intact to light touch in 4 extremities.). Absent: motor sensory deficit - Psychiatric Psychiatric exam: Present: normal affect, normal mood - Skin Skin exam: Present: warm, dry, intact, normal color. Absent: rash ED Course Vital Signs 07/19/18 07/19/18 13:18 14:05 Temperature 98.1 F Pulse Rate 79 Respiratory 13 Rate Blood Pressure 175/82 O2 Sat by Pulse 95 Oximetry - Reevaluation(s) Reevaluation #1: 07/19/18 15:50 Hypertension is reviewed and appreciated. This is a chronic medical condition. The patient is asymptomatic. He can follow-up in outpatient primary care doctor or real estate salesperson for his chronic hypertension. ED Medical Decision Making - Lab Data Result diagrams: 07/19/18 13:29 07/19/18 13:29 Vital Signs 07/19/18 07/19/18 13:18 14:05 Temperature 98.1 F Pulse Rate 79 Respiratory 13 Rate Blood Pressure 175/82 O2 Sat by Pulse 95 Oximetry Lab Results 07/19/18 07/19/18 07/19/18 Range/Units 13:29 13:29 14:10 WBC 9.0 (4.5-11.0) K/mm3 RBC 3.76 (3.65-5.03) M/mm3 Hgb 12.5 (11.8-15.2) gm/dl Hct 38.5 (35.5-45.6) % MCV 103 H (84-94) fl MCH 33 H (28-32) pg MCHC 32 (32-34) % RDW 14.8 (13.2-15.2) % Plt Count 203 (140-440) K/mm3 Lymph % (Auto) 15.5 (13.4-35.0) % Cannon % (Auto) 13.1 H (0.0-7.3) % Eos % (Auto) 7.2 H (0.0-4.3) % Baso % (Auto) 0.9 (0.0-1.8) % Lymph # 1.4 (1.2-5.4) K/mm3 Cannon # 1.2 H (0.0-0.8) K/mm3 Eos # 0.6 H (0.0-0.4) K/mm3 Baso # 0.1 (0.0-0.1) K/mm3 Seg Neutrophils % 63.3 (40.0-70.0) % Seg Neutrophils # 5.7 (1.8-7.7) K/mm3 Sodium 137 (137-145) mmol/L Potassium 2.9 L* (3.6-5.0) mmol/L Chloride 96.1 L (98-107) mmol/L Carbon Dioxide 29 (22-30) mmol/L Anion Gap 15 mmol/L BUN 18 (9-20) mg/dL Creatinine 6.4 H (0.8-1.5) mg/dL Estimated GFR 10 ml/min BUN/Creatinine Ratio 3 % Glucose 111 H (75-100) mg/dL Calcium 9.8 (8.4-10.2) mg/dL Magnesium 2.00 (1.7-2.3) mg/dL Total Bilirubin 0.40 (0.1-1.2) mg/dL AST 12 (5-40) units/L ALT 7 (7-56) units/L Alkaline Phosphatase 79 (35-129) units/L Total Protein 7.8 (6.3-8.2) g/dL Albumin 3.5 L (3.9-5) g/dL Albumin/Globulin Ratio 0.8 % - EKG Data 07/19/18 15:45 Sinus rhythm, 71 bpm, left axis deviation, left anterior fascicular block, QTC p rolonged, IA interval prolonged, poor R-wave progression, this is an abnormal EKG, the patient is not having chest pain, the EKG is not consistent with an ST elevation myocardial infarction. - Radiology Data Radiology results: image reviewed interpreted by me: X-ray the chest negative for acute disease - Medical Decision Making Differential diagnosis, including not limited to: Laboratory error, laboratory evaluation, generalized diarrhea, C. difficile Assessment and plan: 72-year-old gentleman with 2 complaints. His first complaint is of diarrhea. He had one episode of diarrhea in the emergency room. It was not particularly smelly. He is afebrile with reassuring vital signs. Clinically doubt C. difficile, but we will send a sample. He is reportedly being managed for his diarrhea symptomatically by his residential. The residential can follow up on the C. difficile sample. He is also sent for evaluation of nonspecific reports of abnormal laboratory studies, drawn one week ago. Laboratory studies today are reviewed and appreciated. Hypokalemia is expected given history of receiving dialysis today. Has chronic renal insufficiency Elevated blood pressure also chronic, and the patient is given his standard antihypertensive medications. The patient is observed in the emergency room for a few hours, without clinical decompensation. The patient does not appear to have an emergent medical condition at this time, he can follow up with his outpatient primary care doctor for blood pressure recheck. Critical care attestation.: If time is entered above; I have spent that time in minutes in the direct care of this critically ill patient, excluding procedure time. ED Disposition Clinical Impression: End-stage renal disease on peritoneal dialysis, History of diarrhea Disposition: [id number] HOME UNDER HOME HLTH Is pt being admited?: No Does the pt Need Aspirin: No Condition: Stable Additional Instructions: Continue outpatient medications. Follow up with the primary care doctor or a kidney doctor within the next 7-10 days. Cultures were sent today, and results will be available in the next 3-4 days. Please have a primary care doctor or kidney doctor contact the medical records department to obtain stool sample results. Please note that blood pressure was found to be elevated. This should be followed up by a primary care doctor or kidney doctor within the next 2 weeks. Long-term complications of hypertension and elevated blood pressure includes stroke, heart attack, disability, paralysis, loss of quality of life. Please return to the emergency room right away with it, worsened or different symptoms. Please make certain to adhere to a diet which is safe for diabetics and for kidney patients. Referrals: PARMINDER CORMIER MD [Staff Physician] - 3-5 Days
--- NOTE | 2018-07-19 15:45 | XRay Report ---
PORTABLE CHEST INDICATION: Cough, hypertension. COMPARISON: 05/29/2018 FINDINGS: Portable, frontal chest radiograph again demonstrates limited inspiration with mild exaggerated cardiomediastinal silhouette/possible cardiomegaly. Right hemidiaphragm approximately 3 cm higher than the left. Slight aortic knob calcifications. Stable bones, including lower cervical fusion hardware incompletely imaged. EKG leads. CONCLUSION: No acute significant chest process or interval change, as described. Thank you for the opportunity to participate in this patient's care.
[2018-07-19 15:50] VITALS: BP 208/114
[2018-07-19] MEDS ORDERED: LOPRESSOR PO SCH (22:00)
== END 2018-07-19 17:45 | disposition home health service (06) ==
LOC: ED 12:48
DX: E11.22 Type 2 diabetes mellitus with diabetic chronic kidney disease (principal); I12.0 Hypertensive chronic kidney disease with stage 5 chronic kidney disease or end stage renal disease; N18.6 End stage renal disease; E78.00 Pure hypercholesterolemia, unspecified; R19.7 Diarrhea, unspecified; R05 Cough; Z99.2 Dependence on renal dialysis
CPT/HCPCS: 36415; 71045; 80053; 82271; 83735; 85025; 93005; 93010